=== PATIENT | female | born 1965 | race Caucasian/White ===

== ENCOUNTER 2019-12-29 10:03 | Outpatient (CLI) | payer OTHER, SELFPAY ==
--- NOTE | ~2019-12-29 | MM_ITS ---
EXAMINATION: MM screening mikaela BI w hemal HISTORY: Screening TECHNIQUE: Craniocaudal and mediolateral oblique 3-D tomosynthesis images were obtained and synthetic 2-D images were generated. CAD analysis was submitted and interpreted. COMPARISON: Comparison to multiple prior studies sequentially, with oldest reviewed study dated 02/2010. BREAST PARENCHYMAL COMPOSITION: The breasts are heterogeneously dense, which may obscure small masses . FINDINGS: There is no evidence of suspicious mass, calcification, or architectural distortion to sugg est malignancy in either breast. There has been no suspicious interval change. IMPRESSION: 1. No mammographic evidence of malignancy. 2. Recommend routine screening mammography in one year. BI-RADS Category 1: Negative Reviewed, dictated and finalized at location A.
== END 2019-12-29 10:04 | disposition home or self-care (01) ==
PROVIDERS: PCP Internal Medicine; Visit Provider Internal Medicine
DX: Z12.31 Encounter for screening mammogram for malignant neoplasm of breast (principal)
CPT/HCPCS: 77063; 77067

== ENCOUNTER 2021-05-06 08:32 | Emergency (ER) | payer OTHER, SELFPAY ==
[2021-05-06 08:51] VITALS: BP 122/77; PULSE 81; RESP 18; TEMP 36.8; O2SAT 98
--- NOTE | 2021-05-06 08:57 | ED.FEMALEGU ---
HPI - Female Genitourinary General Chief complaint: Urogenital-Female Stated complaint: UTI Time Seen by Provider: 05/06/21 09:13 Source: patient and RN notes reviewed Mode of arrival: ambulatory Limitations: no limitations History of Present Illness HPI Narrative: 55-year-old female presents with concern for urinary tract infection. She reports 1 month history of symptoms. She reports dysuria, frequency, urgency, low back pain, suprapubic pressure, hematuria. She reports starting to have nausea today. She also reports 1 month history of body aches, headache, sore throat. Reports she called off work and was required to have a Covid test to return to work. MD elicited complaint: UTI Related Data Home Medications Medication Instructions Recorded Confirmed acyclovir 200 mg PO QID 05/06/21 05/06/21 alprazolam 0.5 mg PO QID PRN 05/06/21 05/06/21 atorvastatin 40 mg PO DAILY 05/06/21 05/06/21 azelastine 0.05 drp EACH EYE BID 05/06/21 05/06/21 citalopram 40 mg PO DAILY 05/06/21 05/06/21 clopidogrel 75 mg PO DAILY 05/06/21 05/06/21 conj estrog-medroxyprogest desiree 0.3 tablet PO DAILY 05/06/21 05/06/21 [Prempro] gabapentin 300 mg PO HS 05/06/21 05/06/21 hydroxychloroquine 200 mg PO BID 05/06/21 05/06/21 oxycodone-acetaminophen 5 tablet PO Q6H PRN 05/06/21 05/06/21 Allergies Allergy/AdvReac Type Severity Reaction Status Date / Time Sulfa (Sulfonamide Allergy Unknown Hives Verified 08/30/18 07:45 Antibiotics) Review of Systems Review of Systems: CONSTITUTIONAL: Reports malaise, chills. Denies sweats, or fever. EYES: Denies visual changes, redness, or discharge. ENT: Denies rhinorrhea, congestion, sinus pain, otalgia. Reports sore throat. CARDIOVASCULAR: Denies chest pain, palpitations, or edema. RESPIRATORY: Denies cough or dyspnea. GASTROINTESTINAL: Denies abdominal pain, vomiting, diarrhea. Reports nausea and suprapubic pain GENITOURINARY: Reports dysuria, frequency, flank pain, hematuria. SKIN: Denies rash or itching. MUSCULOSKELETAL: Reports bilateral low back pain,myalgia. NEUROLOGIC: Reports headache. All systems reviewed & are unremarkable except as noted in HPI and below PMFSH Social History Social History Smoking status: Current every day smoker Alcohol intake: current Comments At time of signature, agree with nursing past medical, surgical, social and family history. There is no relevant family history pertinent to the presenting complaint Exam Narrative: GENERAL: Well-appearing, well-nourished, and in no acute distress. HEAD: Normocephalic. EYES: PERRLA, conjunctivae clear. NECK: Supple. No lymphadenopathy CHEST: Clear to auscultation. No respiratory distress. HEART: Regular rate and rhythm. ABDOMEN: Soft, suprapubic tenderness, nondistended, normal active bowel sounds, no palpable or pulsatile masses, no guarding. Bilateral CVA tenderness SKIN: Warm, dry, no rash. NEURO: Alert and oriented x3. PSYCH: Normal mood and affect Course Course Emergency Course: Patient is aware of diagnosis, understands and agrees to treatment plan. Anticipatory guidance given. Patient agrees to follow-up as directed and is aware of reasons to seek care at the emergency department. Portions of this record may have been created with voice recognition software Vital Signs Vital signs: Vital Signs Temperature 98.3 F 05/06/21 08:51 Pulse Rate 81 05/06/21 08:51 Respiratory Rate 18 05/06/21 08:51 Blood Pressure 122/77 05/06/21 08:51 Pulse Oximetry 98 05/06/21 08:51 Temperature 98.3 F 05/06/21 08:51 Pulse Rate 81 05/06/21 08:51 Respiratory Rate 18 05/06/21 08:51 Blood Pressure 122/77 05/06/21 08:51 Pulse Oximetry 98 05/06/21 08:51 Reviewed. MDM - Female Genitourinary MDM Narrative Medical decision making narrative: Exam findings and UA show no acute concerns or changes; patient is non-toxic appearing and is in no distress. Patient is appropriate for outpatient treatmen
== END 2021-05-06 09:47 | disposition home or self-care (01) ==
PROVIDERS: Emergency Provider Nurse Practitioner; PCP Internal Medicine
DX: N39.0 Urinary tract infection, site not specified (principal); Z20.822 Contact with and (suspected) exposure to COVID-19
CPT/HCPCS: 81003; 87086; 87088; 87426; 99213; C9803; G0463

== ENCOUNTER 2023-10-08 11:08 | Emergency (ER) | payer OTHER, SELFPAY ==
--- NOTE | ~2023-10-08 | XR_ITS ---
XR knee RT min 4V 10/08/2023 12:03 Indication: Right knee pain Procedure: 4 views right knee Comparison: No prior studies for comparison. Findings: No fracture, subluxation or dislocation. No significant soft tissue abnormality. No foreign bodies. There are surgical clips involving the soft tissues medial to the distal femur. Impression: 1: No acute bone or joint abnormality. Reviewed, dictated and finalized at location B. Impression: 1: No acute bone or joint abnormality.
[2023-10-08 11:27] VITALS: BP 136/67; PULSE 66; RESP 14; TEMP 36.6; O2SAT 99
--- NOTE | 2023-10-08 11:27 | ED.GENADULT ---
HPI - General Adult General Chief complaint: Extremity Injury, Lower Stated complaint: Fall Injury/Right Knee Time Seen by Provider: 10/08/23 11:28 Source: patient, RN notes reviewed and old records reviewed Mode of arrival: ambulatory Limitations: no limitations History of Present Illness HPI narrative: 58-year-old [facility] complaint of right knee pain status post fall 5 days ago. Patient reports tripping over a blanket and hitting her medial right knee on her bed frame. Patient denies numbness, tingling, weakness, pertinent history. Patient has attempted to treat at home with rest and ice without much improvement. patient in no acute distress. Related Data Home Medications Medication Instructions Recorded Confirmed acyclovir 200 mg capsule 200 mg PO QID 05/06/21 10/08/23 alprazolam 0.5 mg tablet 0.5 mg PO QID PRN Anxiety 05/06/21 10/08/23 atorvastatin 40 mg tablet 40 mg PO DAILY 05/06/21 10/08/23 citalopram 40 mg tablet 40 mg PO DAILY 05/06/21 10/08/23 clopidogrel 75 mg tablet 75 mg PO DAILY 05/06/21 10/08/23 gabapentin 100 mg capsule 300 mg PO HS 05/06/21 10/08/23 hydroxychloroquine 200 mg tablet 200 mg PO BID 05/06/21 10/08/23 oxycodone-acetaminophen 5 mg-325 5 tablet PO Q6H PRN Pain (Scale 05/06/21 10/08/23 mg tablet Score 4-6) ergocalciferol (vitamin D2) 1,250 1,250 mcg PO WEEKLY 10/08/23 10/08/23 mcg (50,000 unit) capsule umeclidinium 62.5 mcg-vilanterol 2 inh inhalation DAILY 10/08/23 10/08/23 25 mcg/actuation powdr for inhalation (Anoro Ellipta) Allergies Allergy/AdvReac Type Severity Reaction Status Date / Time Sulfa (Sulfonamide Allergy Unknown Hives Verified 10/08/23 12:00 Antibiotics) Review of Systems Review of Systems: All systems reviewed & are unremarkable except as noted in HPI and below Constitutional: Constitutional: Reports no additional constitutional complaints Eyes: Eyes: Reports no additional eye complaints ENT: Reports system reviewed and no additional complaints, except as documented Cardiovascular: Cardiovascular: Reports no additional cardiovascular complaints, Denies chest pain and Denies dyspnea Respiratory: Respiratory: Reports no additional respiratory complaints, Denies cough and Denies dyspnea Musculoskeletal: Musculoskeletal: Reports as per HPI, Reports arthralgias ( Right knee) and Reports joint swelling ( right knee) Neurologic: Reports as per HPI, Denies Sensory deficit (Neuro), Denies tingling and Denies weakness Psychiatric: Psychiatric: Reports no additional psychiatric complaints PMFSH Social History Social History Smoking status: Current every day smoker Alcohol intake: current Comments At the time of my signature, I reviewed and agree with the nursing past medical, surgical, social, and family history. There is no relevant family history pertinent to the patient complaint. Exam Const: General: cooperative, healthy appearing, comfortable, no acute distress, alert and well nourished Nutritional Appearance: well nourished Orientation/consciousness: patient oriented x3 Limitations: no limitations HENMT: Head: normal to inspection Ears: external ears normal Face/Nose/Sinus: Normal external nose present, Normal nares present, normal facial exam, No erythema and No edema Face and sinus: normal facial exam, no erythema and no edema Mouth: Yes Normal oral and palatal mucosa present Eyes: General: appearance normal, both eyes and all related structures Neck: Neck: normal visual inspection, full ROM and no meningeal signs Lymphatic: no lymphadenopathy noted and no lymphedema noted Chest: Chest palpation & inspection: normal inspection of the chest Resp: Effort & Inspection: normal respiratory effort and able to speak in complete sentences Auscultation: clear to auscultation bilaterally Cardio: Jugular venous distension: no JVD Rate: regular rate Rhythm: regular
[2023-10-08 12:07] VITALS: BP 136/67; PULSE 66; RESP 14; TEMP 36.6; O2SAT 99
== END 2023-10-08 12:20 | disposition home or self-care (01) ==
PROVIDERS: Emergency Provider Nurse Practitioner Family; PCP Internal Medicine
DX: S80.01XA Contusion of right knee, initial encounter (principal); W18.09XA Striking against other object with subsequent fall, initial encounter; F17.200 Nicotine dependence, unspecified, uncomplicated; E78.00 Pure hypercholesterolemia, unspecified; I10 Essential (primary) hypertension; M19.90 Unspecified osteoarthritis, unspecified site; M32.9 Systemic lupus erythematosus, unspecified; F41.9 Anxiety disorder, unspecified; F32.A Depression, unspecified; Z95.1 Presence of aortocoronary bypass graft
CPT/HCPCS: 73564; 99213; G0463

== ENCOUNTER 2024-11-09 11:25 | Emergency (ER) | payer OTHER, SELFPAY ==
--- OUTSIDE RECORDS SUMMARY | 2024-11-09 11:31 | XMS_ITS | Referral Summary ---
Author Organization [facility] Address [address] [place] [address] Care Team Providers Care Bowling Floor Desk Clerk Name Role Phone Jevon Wilson MD Primary Care Provider + Ace Young MD Unavailable [phone] Allergies Active Allergy Reactions Criticality Noted Date Comments Adhesive Other (See comments) Medium 02/06/2023 Surgical glue - states her arm turned black Sulfa (Sulfonamide Antibiotics) Hives,Itching High 10/15/2016 Medications albuterol HFA (PROAIR HFA) 90 mcg/actuation inhaler inhale 2 puff by inhalation route every 4 - 6 hours as needed 1 Inhaler 11 11/08/19 17 Active Additional Information Patient taking differently: 2 puff inhalation As needed, shortness of breath, wheezing, Indications: Chronic Obstructive Pulmonary Disease, Informant: Self, Reported on 02/06/2023 citalopram (CeleXA) 40 mg tablet Take 1 tablet (40 mg total) by mouth daily. 90 tablet 3 12/13/19 17 Active Additional Information Patient taking differently:40 mg oralEvery morning, Indications: Anxiety with Depression, Informant: Self, Reported on 02/06/2023 gabapentin (NEURONTIN) 100 mg capsuleIndication s:Neuropathic Pain,lupus Take 3 capsules (300 mg total) by mouth nightly Active clopidogrel (PLAVIX) 75 mg tabletIndications :myocardial infarction prevention Take 1 tablet (75 mg total) by mouth every morning Active oxyCODONE-acetami nophen (PERCOCET) 5-325 mg per tabletIndications :Pain Take 1 tablet by mouth every 8 (eight) hours as needed for pain Active ondansetron ODT (ZOFRAN-ODT) 4 mg disintegrating tablet Dissolve 1 tablet oral every 4 hours as needed for nausea or vomiting. 15 tablet 02/23/20 18 Active Additional Information Patient taking differently: 4 mg oral Every 8 hours PRN, nausea, vomiting, Dissolve 1 tablet oral every 4 hours as needed for nausea or vomiting., Informant: Self, Reported on 02/06/2023 ALPRAZolam (XANAX) 0.5 mg tabletIndications :anxiety,sleep Take 1 tablet (0.5 mg total) by mouth nightly 3 06/21/19 19 Active umeclidinium-peggy nterol (ANORO ELLIPTA) 62.5-25 mcg/actuation blister with deviceIndications :Bronchospasm Prevention with COPD Inhale 1 puff every morning Active acyclovir (ZOVIRAX) 200 mg capsuleIndication s:Chronic Suppression,herpe s Take 3 capsules (600 mg total) by mouth 2 (two) times a day 05/07/20 21 Active nitroglycerin (NITROSTAT) 0.[address] 1 tablet (0.4 mg total) under the tongue every 5 (five) minutes as needed for chest pain 08/23/19 21 Active hydrOXYchloroQUIN E (PLAQUENIL) 200 mg tabletIndications :Rheumatoid Arthritis,lupus Take 1 tablet (200 mg total) by mouth 2 (two) times a day 04/09/20 21 Active aspirin/acetamino phen/caffeine (EXCEDRIN MIGRAINE ORAL)Indications: for migraines Take 2 tablets by mouth as needed (headaches) Active oxybutynin (DITROPAN) 5 mg tabletIndications :Bladder Hyperactivity,Uri nary Urgency Take 1 tablet (5 mg total) by mouth 3 (three) times a day as needed (bladder spasms) 10 tablet 05/29/20 21 Active Additional Information Patient taking differently:5 mg oral 3 times daily PRN, bladder spasms,Not taking, Indications: Bladder Hyperactivity, Urinary Urgency, Informant: Self, Reported on 03/08/2024 cholecalciferol (VITAMIN D-3) 25 mcg (1,000 unit) tabletIndications :for supplement Take 5 tablets (5,000 Units total) by mouth every morning Not taking Active sucralfate (CARAFATE) 1 gram tablet Take 1 tablet (1 g total) by mouth 4 (four) times a day 120 tablet 02/06/20 23 Active Additional Information Patient taking differently:1 g oral 4 times daily,Indications: gastroesophageal reflux disease, Informant: Self, Reported on 02/06/2023 atorvastatin (LIPITOR) 40 mg tabletIndications :hyperlipidemia Take 1 tablet (40 mg total) by mouth every morning 02/16/[address] (PROTONIX) 40 mg EC tablet Take 1 tablet (40 mg total) by mouth every morning 02/07/20 24 Active phenazopyridine (PYRIDIUM) 100 mg tablet Take 1 tablet (100 mg total) by mouth 3 (three) times a day as needed for urinary pain 40 tablet 2 03/30/20 24 Active Active Problems Problem Noted Date Diagnosed Date Chronic gastric ulcer 03/26/2023 IC (interstitial cystitis) 07/10/2021 Overview (07/10/2021): Added automatically from request for surgery [id number] 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 She describes losing weight after cardiac surgeon. She is a chronic cigarette smoker and has severe COPD. My suspicion is that have cachexia be more related to the COPD. She also has rheumatoid arthritis, peripheral vascular disease and lupus. Will request for CBC, CMP and CT abdomen and pelvis. Healthcare maintenance 01/28/2017 Medication management 01/28/2017 Generalized abdominal pain 01/28/2017 Migraine without aura and wi thout status migrainosus, not intractable 01/28/2017 Gastroesophageal reflux disease without esophagi tis 01/08/2017 Assessment & Plan (01/08/2017 3:34 PM CDT): Patient was encouraged to take her medications with food. Patient will trial Zantac 75 twice daily as needed [id number]. Will cut back on the peppers and tomatoes from the garden. He will follow up here with absolutely any change in, worsening, or non improvement in condition. Pain of upper abdomen 01/05/2017 Assessment & Plan (07/02/2018 10:56 AM TELEVISION PRODUCER): Chronic. Associated with weight loss. May be due to gastroesophageal reflux disease but less likely peptic ulcer disease. Chronic pancreatitis is a consideration. Plan Will obtain a CT scan of the abdomen and pelvis. Esophagogastroduodenoscopy is recommended and scheduled. CBC, CMP and amylase levels are requested. Assessment & Plan (01/05/2017 3:55 PM CDT): With recent weight loss, associated nausea and vomiting, and white bowel movements. I am concerned with underlying gallbladder vs. liver disease. She also appears to have a urinary tract infection as well. We will be empirically treating her presumed urinary tract infection. Urine will be sent for urinalysis with culture and sensitivity. She will proceed to the lab today for a CBC, CMP, amylase, and lipase. We will also get her scheduled for right upper quadrant abdominal ultrasound. She will closely follow up here on or Thursday of this week. Patient declined emergency room consultation. She notes her pain is severe but she wished to proceed on an outpatient basis. Patient was encouraged to proceed to the emergency room with any change in, worsening, or non improvement in her condition. Both she and her verbalized understanding and were in agreement with the plan of care. We discussed the severity of the possibility of underlying acute gallbladder attack. And that this could cause rupture subsequent infection and life-threatening illness. Both verbalized understanding and were in agreement with the plan of care. Systemic lupus erythematosus 10/08/2016 Overview (10/31/2016): SLE Carotid artery disease 06/10/2016 Overview (09/11/2016): Carotid artery disease Hepatitis C virus infection 06/10/2016 Overview (09/11/2016): Hep C Assessment & Plan (07/02/2018 10:57 AM TELEVISION PRODUCER): Patient has been treated in the past with interferon and ribavirin. Blood tests reveal undetectable virus in 2017. Imaging studies did not reveal any evidence of cirrhosis. No further intervention is required. Tobacco dependence syndrome 06/10/2016 Overview (09/11/2016): Tobacco use disorder Chronic coronary artery disease 06/10/2016 Overview (09/11/2016): CAD Peripheral arterial occlusive disease 06/10/2016 Overview (09/11/2016): PAD Endometriosis 09/14/2014 Overview (09/11/2016): Endometriosis Rheumatoid arthritis involvi ng multiple sites with positive rheumatoid factor 09/14/2014 Overview (09/11/2016): RA - Rheumatoid arthritis Chronic obstructive pulmonary disease 09/14/2014 Overview (09/11/2016): COPD - Chronic obstructive pulmonary disease Resolved Problems Problem Noted Date Diagnosed Date Resolved Date Dysuria 01/05/2017 01/28/2017 Assessment & Plan (01/05/2017 3:52 PM CDT): Urine dip reviewed. I recommended empiric treatment with Macrobid 1 by mouth twice daily for the next 7 days. Urine will be submitted for urinalysis with culture and sensitivity. Further direction pending these results. She will be following up here closely within 3-4 days. Immunizations Immunization Administration Dates Next Due Influenza, Quadrivalent, Split, Intramuscular Influenza, Quadrivalent, Spl it, Preservative Free, Intradermal 06/10/2016 Influenza, Trivalent, IM (MDV) 03/16/2017 Moderna SARS-CoV-2 Monovalent Vaccination (12+ Y RS) 09/26/2020 Pneumococcal Polysaccharide PPV23 02/08/2015 Social History Tobacco Use Types Packs/Day Years Used Date Smoking Tobacco: Every Day Cigarettes 0.4 20.4 Started: 2004 Smokeless Tobacco: Never Tobacco Cessation:Ready to Q uit: Not Asked; Counseling Given: Not Answered Comments:currently trying to quit; counselled pt to contact PCP for assist; inst not to smoke after midnight tonight; Alcohol Use Standard Drinks/Week Comments No 0 (1 standard drink = 0.6 oz pur e alcohol) AUDIT-C Answer Date Recorded Q1: How often do you have a drink containing alcohol? Never 03/30/2024 Q2: How many drinks containi ng alcohol do you have on a typical day when you are drinking? Patient does not drink Q3: How often do you have si x or more drinks on one occasion? Never 03/30/2024 PHQ-2 Answer Date Recorded PHQ-2 Total Score (If total score is 3 or more points, staff should administer the PHQ-9) 0 06/27/2021 Personal Safety Answer Date Recorded Have you ever been in or are you currently in a harmful physical or emotional relationship or is someone making you feel afraid or unsafe? Denies 03/30/2024 Comments No Sex and Gender Information Value Date Recorded Sex Assigned at Not on file Legal Sex Female 3:35 AM TELEVISION PRODUCER Gender Identity Female 05/23/2021 8:56 AM TELEVISION PRODUCER Sexual Orientation Not on file Last Filed Vital Signs Vital Sign Reading Time Taken Comments Blood Pressure 121/83 03/30/2024 1:45 PM CDT Pulse 51 03/30/2024 1:45 PM CDT Temperature 36.3 C (97.3 F) 03/30/2024 1:45 PM CDT Respiratory Rate 21 03/30/2024 1:45 PM CDT Oxygen Saturation 96% 03/30/2024 1:45 PM CDT Inhaled Oxygen Concentration - - Weight 48.6 kg (107 lb 3.2 oz) 03/30/2024 11:07 AM CDT Height 162.6 cm (5' 4) 03/30/2024 11:07 AM CDT Body Mass Index 18.4 03/30/2024 11:07 AM CDT Plan of Treatment Not on file Medical Devices Implanted Type Area Email Operations Manager Device Identifier Shelf Expiration Date Model / Serial / Lot Express Ld Stent Iliac Procedures Procedure Name Priority Date/Time Associated Diagnosis Comments CT CHEST WO CONTRAST F/U LUNG SCREEN PROTOCOL Schedule Routine, Read Routine (OP Routine) 07/18/2024 6:54 AM TELEVISION PRODUCER Other nonspecific abnormal finding of lung field DIAGNOSTIC MAMMOGRAM BILATERAL W ALIN Schedule Routine, Read Routine (OP Routine) 08/31/2023 8:09 AM CDT Other abnormal and inconclusive findings on diagnostic imaging of breast COLONOSCOPY 02/26/2022 12:51 PM CDT HEPATITIS C RNA, QUANTITATIVE, PCR Routine 02/13/2022 9:26 AM CDT Chronic hepatitis C without hepatic coma (HCC) IMAGING PAP AND HPV MRNA E6/E7 Routine 11/05/2018 9:11 AM CDT Well woman exam from Last 3 Months or Most Recently Relevant to Health Maintenance Results * CT Chest WO Contrast F/U Lung Screen Protocol (07/18/2024 6:54 AM TELEVISION PRODUCER) Anatomical Region Laterality Modality Chest N/A Computed Tomogra phy 07/18/2024 8:59 AM TELEVISION PRODUCER Narrative 07/18/2024 9:19 AM TELEVISION PRODUCER EXAM DESCRIPTION: CT CHEST WO CONTRAST F/U LUNG SCREEN PROTOCOL REASON FOR STUDY: Screening CT of the chest in a current smoker with a 20 pack year smoking history. Additional history: None. TECHNIQUE: Low dose CT scan of the chest was performed without intravenous contrast using helical scanning technique. The exam extends from the lung apices through the lung bases. Automatic exposure control was used as a dose optimization technique. NOTE: This study was performed for the specific purposes of lung cancer screening and is not an alternative to diagnostic chest CT. The sensitivity for detection of solid visceral lesions is diminished without the use of intravenous contrast. RADIATION DOSE: CT dose index volume (CTDIvol) = 0.95 mGy COMPARISON: CT chest 04/08/2024 FINDINGS: SMOKING RELATED LUNG DISEASE: Moderate pulmonary emphysema. Scarring in the lung apices. LUNG NODULES: Semisolid 1.7 x 0.7 cm nodule in the right apex (image 39) is unchanged. Noncalcified 4 mm nodule in the medial left upper lobe (image 154) is unchanged. Noncalcified 3 mm nodule in the juxtapleural right middle lobe (image 189) is unchanged. Noncalcified 2 mm nodule in the anterior left lower lobe (image 76) is unchanged. Minimal nodularity in the lateral segment right middle lobe has slightly decreased in is favored to be postinfectious in etiology. PLEURAE: No pneumothorax or pleural effusion. MEDIASTINUM/AGAPITO: No mediastinal or hilar lymphadenopathy within the limitations of a noncontrast exam. HEART: Heart size is normal with no pericardial effusion. CORONARY ARTERY CALCIFICATION: Severe VASCULATURE: No thoracic aortic aneurysm. AXILLAE: No lymphadenopathy. CHEST WALL: No masses. No subcutaneous air. HARDWARE/LINES/TUBES: Prior sternotomy. UPPER ABDOMEN: Mild thoracic spondylosis. MUSCULOSKELETAL: No significant abnormality. IMPRESSION: Stable semisolid 1.7 x 0.7 cm nodule in the right apex is unchanged from 08/31/2023. The tree-in-bud nodularity in the right middle lobe has slightly decreased and is favored to be postinfectious. Other noncalcified pulmonary nodules are unchanged. Moderate pulmonary emphysema. Lung-RADS category 2: Benign appearance or behavior. Recommendation: Low dose Screening CT of chest in 12 months. THIS IS AN ELECTRONICALLY VERIFIED FINAL REPORT 07/18/2024 9:19 AM - Electronically signed by Dez Peguero M.D. LB: LB Report ID: [id number] Reading Location: [place] [address] Procedure Note Dze Peguero MD - 07/18/2024 EXAM DESCRIPTION: CT CHEST WO CONTRAST F/U LUNG SCREEN PROTOCOL REASON FOR STUDY: Screening CT of the chest in a current smoker with a20 pack year smoking history. Additional history: None. TECHNIQUE: Low dose CT scan of the chest was performed without intravenous contrast using helical scanning technique. The exam extends from the lung apices through the lung bases. Automatic exposure control was used as adose optimization technique. NOTE: This study was performed for the specific purposes of lung cancer screening and is not an alternative to diagnostic chest CT. Thesensitivity for detection of solid visceral lesions is diminished without the use of intravenous contrast. RADIATION DOSE: CT dose index volume (CTDIvol) = 0.95 mGy COMPARISON: CT chest 04/08/2024 FINDINGS: SMOKING RELATED LUNG DISEASE: Moderate pulmonary emphysema. Scarring inthe lung apices. LUNG NODULES: Semisolid 1.7 x 0.7 cm nodule in the right apex (image 39)is unchanged. Noncalcified 4 mm nodule in the medial left upper lobe ([id number]) is unchanged. Noncalcified 3 mm nodule in the juxtapleural right middlelobe (image 189) is unchanged. Noncalcified 2 mm nodule in the anterior leftlower lobe (image 76) is unchanged. Minimal nodularity in the lateral segmentright middle lobe has slightly decreased in is favored to be postinfectious in etiology. PLEURAE: No pneumothorax or pleural effusion. MEDIASTINUM/AGAPITO: No mediastinal or hilar lymphadenopathy within the limitations of a noncontrast exam. HEART: Heart size is normal with no pericardial effusion. CORONARY ARTERY CALCIFICATION: Severe VASCULATURE: No thoracic aortic aneurysm. AXILLAE: No lymphadenopathy. CHEST WALL: No masses. No subcutaneous air. HARDWARE/LINES/TUBES: Prior sternotomy. UPPER ABDOMEN: Mild thoracic spondylosis. MUSCULOSKELETAL: No significant abnormality. IMPRESSION: Stable semisolid 1.7 x 0.7 cm nodule in the right apex is unchanged from 08/31/2023. The tree-in-bud nodularity in the right middle lobe has slightlydecreased and is favored to be postinfectious. Other noncalcified pulmonary nodules are unchanged. Moderate pulmonary emphysema. Lung-RADS category 2: Benign appearance or behavior. Recommendation: Low dose Screening CT of chest in 12 months. THIS IS AN ELECTRONICALLY VERIFIED FINAL REPORT 07/18/2024 9:19 AM - Electronically signed by Dez Peguero M.D. LB: NASEEM Report ID: [id number] Reading Location: [place] [address] Cale Meehan MD IMG CT PROCEDURES Regina l Result * Diagnostic Mammogram Bilateral W Alin (08/31/2023 8:09 AM CDT) Anatomical Region Laterality Modality Breast Bilateral Mammography 08/31/2023 8:20 AM CDT Impressions 08/31/2023 8:20 AM CDT 1. The 3 mm group of probably benign microcalcifications at the 12 o'clock position of the right breast 5 cm from the nipple is unchanged, and no new suspicious findings are identified in either breast. Continued monthly breast self-examination is recommended, and follow-up with bilateral diagnostic mammogram in 12 months to document two-year stability. BI-RADS: 3 - Probably benign. The patient was notified of the results and recommendations on the time of the examination. Electronically signed by: VERONICA MURPHY Prisca 08/31/2023 8:20 AM CDT EXAMINATION: DIAGNOSTIC MAMMOGRAM BILATERAL W ALIN ORDERING HEALTHCARE PROVIDER: MONALISA BARNES HISTORY: 28-year-old woman comes in today for follow-up of probably benign microcalcifications in the right breast, an screening of the left breast. COMPARISON: 08/27/2022, 12/29/2019. TECHNIQUE: CC and MLO views of both breasts were obtained with digital technique using digital breast tomosynthesis with C view. Additional full field 2-D digital mammograms of the right breast performed in the spot magnification CC and spot magnification LM projections. FINDINGS: The breast tissue is heterogeneously dense, which may obscure small masses. A 3 mm group of round and punctate microcalcifications is redemonstrated at approximately the 12 o'clock position of the right breast 5 cm from the nipple. There is no associated mass or architectural distortion. Overall appearance of this finding is stable compared to August 2022. These findings were equivocally present on older mammograms. Other benign microcalcifications in both breasts are unchanged. There is no new suspicious finding in either breast on mammogram. us Monalisa Barnes RIDE MECHANIC IMG MAMMO PROCEDURES Final Result * COLONOSCOPY (02/26/2022 12:51 PM CDT) Anatomical Region Laterality Modality Other Narrative Procedure Note Zack Avilez MD - 02/26/2022 12:51 PM CDT [facility] Patient Name: Estela Barney Procedure Date: 02/26/2022 12:51 PM Date of : 1965 Admit Type: Outpatient Age: 56 Gender: Female Note Status: Finalized Attending MD: Zack Avilez M.D. Procedure Date: 02/26/2022 Procedure: Colonoscopy Indications: Weight loss Providers: Zack Avilez M.D., Sara Gill CRNA (Anesthesia Staff), Diana Madera RN Referring MD: Jevon Wilson M.D. Medicines: Monitored Anesthesia Care Complications: No immediate complications. Estimated Blood Loss: Estimated blood loss: none. Procedure: Pre-Anesthesia Assessment: - Airway Examination: normal oropharyngeal airwayand neck mobility. - Respiratory Examination: clear to auscultation. - ASA Grade Assessment: III - A patient with severe systemic disease. - After reviewing the risks and benefits, thepatient was deemed in satisfactory condition to undergo the procedure. - The risks and benefits of the procedure and the sedation options and risks were discussed with the patient. All questions were answered and informed consent was obtained. After I obtained informed consent, the scope was passed under direct vision. Throughout theprocedure, the patient's blood pressure, pulse, and oxygen saturations were monitored continuously. The scopewas passed under direct vision. The Colonoscope was introduced through the anus and advanced to the the cecum, identified by the appendiceal orifice, ileocecal valve and palpation. The colonoscopy was performed with ease. The patient tolerated the procedure well. The quality of the bowelpreparation was good. The quality of the bowel preparation was evaluated using the BBPS (Ranson Bowel Preparation Scale) with scores of: Right Colon = 2 (minoramount of residual staining, small fragments of stooland/or opaque liquid, but mucosa seen well), TransverseColon = 2 (minor amount of residual staining, small fragments of stool and/or opaque liquid, but mucosa seen well) and Left Colon = 2 (minor amount of residual staining, small fragments of stool and/or opaque liquid, but mucosa seen well). The totalBBPS score equals 6. The quality of the bowelpreparation was good. The bowel preparation used was Miralaxvia split dose instruction. Bowel prep was administered using a split dose. Findings: The perianal and digital rectal examinations were normal. A 5 mm polyp was found in the sigmoid colon. The polyp was sessile.The polyp was removed with a cold biopsy forceps. Resection and retrieval were complete. Estimated blood loss: none. The retroflexed view of the distal rectum and anal verge was normaland showed no anal or rectal abnormalities. Impression: - One 5 mm polyp in the sigmoid colon, removed witha cold biopsy forceps. Resected and retrieved. - The distal rectum and anal verge are normal on retroflexion view. Recommendation: - Discharge patient to home (ambulatory). - Await pathology results. - Repeat colonoscopy in 5 years for surveillance. Procedure Code(s): --- Professional --- 65374, Colonoscopy, flexible; with biopsy, singleor multiple Diagnosis Code(s): --- Professional --- D12.5, Benign neoplasm of sigmoid colon R63.4, Abnormal weight loss CPT copyright 2020 [employer]. All rights reserved. The codes documented in this report are preliminary and upon hcc coders reviewmay be revised to meet current compliance requirements. Electronically signed by Zack Avilez MD Zack Avilez M.D. 02/26/2022 1:42:48 PM Number of Addenda: 0 Note Initiated On: 02/26/2022 12:51 PM us Zack Avilez MD ENDOSCOPY PROCEDURES Final Resul t * Hepatitis C (HCV) RNA PCR, quantitative (02/13/2022 9:26 AM CDT) HCV RNA result Not Detected [facility] Comment: The quantifiable range of this assay is 15 IU/mL to 100,000,000 IU/mL (1.18 log IU/mL to 8.00 log IU/mL). Testing was performed by the [facility] 6800 HCV Test ([employer] Testing performed at [facility] Current Interpretive Data was last revised on 2021 Testing performed by: [facility], [address] [facility], [place]., [address] Blood 02/13/2022 9:26 AM CDT 02/14/2022 3:03 AM CDT us Zack Avilez MD LAB MICROBIOLOGY - GENERAL ORDER SAMEER Final Result [facility] [id number] [place] [address] * Imaging Pap and HPV mRNA E6/E7 (11/05/2018 9:11 AM CDT) Report status CANCELED [facility] Comment:Result canceled by t he ancillary. CLINICAL INFORMATION: [facility] Comment:Information not prov ided LMP [facility] Comment:INFORMATION NOT PROV IDED Previous Pap [facility] Comment:INFORMATION NOT PROV IDED Prev. Bx [facility] Comment:INFORMATION NOT PROV IDED SOURCE: [facility] Comment:Information not prov ided Pap, specimen adequacy [facility] Comment: Satisfactory for evaluation. Endocervical/transformation zone component absent. Age and/or menstrual status not provided Pap, general categorization CANCELED [facility] Comment:Result canceled by t he ancillary. HPV interp [facility] Comment:Negative for intraep ithelial lesion or malignancy. Infection: CANCELED [facility] Comment:Result canceled by t he ancillary. COMMENTS [facility] Comment: This Pap test has been evaluated with computer assisted technology. Slicing Machine Tender [facility] - Comment: WANDER CT(ASCP) CT [facility] [facility] [address] [place] [address] Review manager core [facility] [place] Comment:Result canceled by t he ancillary. Pathologist [facility] [place] Comment:Result canceled by t he ancillary. Comment [facility] - Comment: EXPLANATORY NOTE: The Pap is a screening test for cervical cancer. It is not a diagnostic test and is subject to false negative and false positive results. It is most reliable when a satisfactory sample, regularly obtained, is submitted with relevant clinical findings and history, and when the Pap result is evaluated along with historic and current clinical information. Human papillomavirus RNA, High Risk E6/E7 Not Detected Not Detected [facility] [place] Comment: This test was performed using the APTIMA HPV Assay ([employer] This assay detects E6/E7 viral messenger RNA (mRNA) from 14 high-risk HPV types (16,18,31,33,35,39,45,51,52,56,58,59,66,68). The analytical performance characteristics of this assay have been determined by [facility]. The modifications have not been cleared or approved by the FDA. This assay has been validated pursuant to the CLIA regulations and is used for clinical purposes. Endocervical 11/05/2018 9:11 AM CDT 11/08/2018 8:28 AM CDT Narrative Resulting Agency Comment Performing Organization Information: Site ID: [id number] Name: [facility] Address: [address] [facility] [place], [place] [address] Director: Riley Soto D.O., MPH Site ID: [id number] [facility] Address: [address] [place] [address] Director: Marivel Gil Michelle Bradshaw NP LAB PATHOLOGY ORDERABLES Final Result [facility] [place], [place] [facility] [place] from Last 3 Months or Most Recently Relevant to Health Maintenance Insurance Communities for Cause OPEN ACCESS HEALTHLINK OPEN ACCESS HEALTHLINK OPEN ACCESS Advance Directives For more information, please contact: [phone] Documents on File Type Date Recorded Patient Physician Relations Specialist Expl anation ADVANCE DIRECTIVE 04/01/2019 12:27 PM * Full Code (Latest Code Status on File) Date Activated Date Inactivated Comments 10/21/2017 12:55 PM 10/23/2017 12:11 PM Care Teams Bowling Floor Desk Clerk Relationship Specialty Start Date End Date Jevon Wilson MD [address] [place] [address] PCP - General 04/23/17 Ace Young MD [address] [address] Consulting Physician Urology 05/29/21
--- OUTSIDE RECORDS SUMMARY | 2024-11-09 11:31 | XMS_ITS | Encounter Summary ---
Author Organization [facility] Address [address] [facility] [place] [address] Care Team Providers Care Booth Operator Name Role Phone Jevon Wilson MD Primary Care Provider + Edison Casper MD Primary Care Provider Jevon Wilson MD Primary Care Provider + Edison Casper MD Primary Care Provider Jevon Wilson MD Primary Care Provider + Jevon Wilson MD Primary Care Provider + Edison Casper MD Primary Care Provider Jevon Wilson MD Primary Care Provider + Edison Casper MD Primary Care Provider [phone] Jevon Wilson MD Primary Care Provider + Ace Young MD Unavailable [phone] Encounter Details Date Type Department Care Team (Late st Contact Info) Description 01/12/2016 Orders Only [place] Internal [facility] Provider, MD [facility] [place] [address] Social History Tobacco Use Types Packs/Day Years Used Date Smoking Tobacco: Some Days Comments:Smoking History Pac ks/day: 1 Packs Alcohol Use Standard Drinks/Week Comments No 0 (1 standard drink = 0.6 oz pur e alcohol) Comments Unknown Sex and Gender Information Value Date Recorded Sex Assigned at Not on file Legal Sex Female 3:35 AM ASSISTIVE TECHNOLOGY TRAINER Gender Identity Female 05/23/2021 8:56 AM ASSISTIVE TECHNOLOGY TRAINER Sexual Orientation Not on file documented as of this encounter Plan of Treatment Not on file documented as of this encounter Procedures Procedure Name Priority Date/Time Associated Diagnosis Comments CARDIOLOGY REPORT 01/12/2016 documented in this encounter Results * CARDIOLOGY REPORT (01/12/2016) Anatomical Region Laterality Modality Other Narrative 01/12/2016 Ordered by an unspecified provider. us Historical Provider [facility] GREGORIA MENDEZ Final Result documented in this encounter Visit Diagnoses Not on filedocumented in this encounter Care Teams Booth Operator Relationship Specialty [place] [address] [place] [address] [place] [address] PCP - General 09/05/16 09/09/16 Edison Casper MD [address] [place] [address] [place] [address] PCP - General 08/27/16 09/04/16 Jevon Wilson MD [address] [place] [address] [place] [address] PCP - General 06/10/16 08/26/16 Edison Casper MD [address] [place] [address] [place] [address] PCP - General 09/10/16 09/16/16 Jevon Wilson MD [address] [place] [address] [place] [address] PCP - General 05/15/15 06/09/16 Jevon Wilson MD [address] [address] PCP - General 09/17/16 09/30/16 Edison Casper MD [facility] [address] PCP - General 10/01/16 10/07/16 Jevon Wilson MD [facility] [address] PCP - General 10/08/16 04/20/17 Edison Casper MD [facility] [address] PCP - General 04/21/17 04/22/17 Jevon Wilson MD [facility] [address] PCP - General 04/23/17 Ace Young MD [address] [place] [address] [place] [address] Consulting Physician Urology 05/29/21 documented as of this encounter
--- OUTSIDE RECORDS SUMMARY | 2024-11-09 11:31 | XMS_ITS | Clinical Summary ---
Author Organization [facility] Address [address] [place] [address] Care Team Providers Care Control Cabinet Assembler Name Role Phone Jevon Wilson MD Primary Care Provider [phone] Allergies Active Allergy Reactions Criticality Noted Date Comments Sulfa (Sulfonamide Antibiotics) Hives High 06/09 Medications acyclovir (ZOVIRAX) 200 mg capsule Take 200 mg by mouth 2 times daily. 3 9 Active albuterol HFA 90 mcg inhaler Take 90 mcg by inhalation Continuous as needed. 7 Active ALPRAZolam (XANAX) 0.5 mg tablet Take 0.5 mg by mouth 4 times daily as needed. 3 9 Active aspirin (ECOTRIN EC) 81 mg Tablet, Delayed Release (E.C.) Take 81 mg by mouth daily. Active atorvastatin (LIPITOR) 80 mg tablet Take 80 mg by mouth daily. 7 Active citalopram (CeleXA) 40 mg tablet Take 40 mg by mouth daily. 7 Active clopidogrel (PLAVIX) 75 mg Tablet Take 75 mg by mouth daily. Active ergocalciferol (VITAMIN D2) 50,000 unit capsule Take 50,000 Units by mouth every 7 days. Active estradiol (ESTRACE) 1 mg tablet Take 1 mg by mouth daily. 3 9 Active gabapentin (NEURONTIN) 100 mg capsule Take 300 mg by mouth daily. Active medroxyPROGESTE Pako (PROVERA) 2.5 mg tablet Take 2.5 mg by mouth daily. 2 9 Active oxyCODONE-aceta minophen (PERCOCET) 5-325 mg tablet Take 1 Tablet by mouth 4 times daily as needed. 8 Active Active Problems No known active problems Family History Medical History Relation Name Comments Cancer Brother Diabetes Brother Heart Disease Brother Pancreatic Cancer Brother Diabetes Mother Heart Disease Mother Colon Cancer Sister 3 Relation Name Status Comments Brother Alive Father Mother Sister 1 Alive Sister 2 Alive Sister 3 Sister 4 Sister 5 Alive Sister 6 Alive Sister 7 Alive Social History Tobacco Use Types Packs/Day Years Used Date Smoking Tobacco: Every Day Cigarettes 1 32 Smokeless Tobacco: Never Comments:only smoking 2-3 ci gs a day Alcohol Use Standard Drinks/Week Comments Not Currently 0 (1 standard drink = 0.6 oz pur e alcohol) Comments No Sex and Gender Information Value Date Recorded Sex Assigned at Not on file Legal Sex Female 11:04 AM CDT Gender Identity Not on file Sexual Orientation Not on file Last Filed Vital Signs Vital Sign Reading Time Taken Comments Blood Pressure 124/78 10/21/2018 9:56 AM CDT Pulse 57 10/21/2018 9:56 AM CDT Temperature 36.7 C (98 F) 10/21/2018 9:56 AM CDT Respiratory Rate - - Oxygen Saturation 94% 10/21/2018 9:56 AM CDT Inhaled Oxygen Concentration - - Weight 49.1 kg (108 lb 4.8 oz) 10/21/2018 9:56 A M CDT Height 165.1 cm (5' 5) 10/21/2018 9:56 AM CDT Body Mass Index 18.02 10/21/2018 9:56 AM CDT Plan of Treatment Health Maintenance Due Date Last Done Comments DTAP/TDAP/TD VACCINES (1 - Tdap) 1983 HPV/Cotest (21-29) 1985 CERVICAL CANCER SCREENING 1994 HPV/Cotest (30-65) 1994 PAP SMEAR 1994 BREAST CANCER SCREENING 2004 COLORECTAL SCREENING 2009 Colorectal Cancer Screening 2009 FIT-DNA Q 3 years 2009 FIT/FOBT Q 1 year 2009 Flex Sig/CT Colonography Q 5 years 2009 ZOSTER VACCINE (1 of 2) 2014 INFLUENZA VACCINE (#1) 2024 7, 06/10/2016, 03/12/2015 HEPATITIS B VACCINES (1 of 3 - Risk 3-dose series) 2024 RSV VACCINE (60+ or ) (1 - Risk 60-74 years 1-dose series) 2024 Insurance [employer] PPO Care Teams Control Cabinet Assembler Relationship Specialty Start Date End Date Jevon Wilson MD [address] [place] [address] PCP - General Internal Medicine 10/21/18
--- OUTSIDE RECORDS SUMMARY | 2024-11-09 11:31 | XMS_ITS | Clinical Summary ---
Author Organization [facility] Address [address] [place] [address] Care Team Providers Care Transfer Agent Name Role Phone Unavailable Primary Care Provider Unavailabl e Source Comments [facility],non-owned Affiliates and Associated Physician Practices is amultiple site organization consisting of ambulatory clinics and hospital sitesin [place], [place], [place] and [place]. This disclosure is being madepursuant to the Care Everywhere program and may not contain all information available regarding this patient. Last updated 18.[facility] Social History Tobacco Use Types Packs/Day Years Used Date Smoking Tobacco: Never Assessed Comments Unknown Sex and Gender Information Value Date Recorded Sex Assigned at Not on file Legal Sex Female 1:50 PM CDT Gender Identity Not on file Sexual Orientation Not on file Plan of Treatment Health Maintenance Due Date Last Done Comments COLOGUARD (AGES 45-75) - COL ON CA SCREENING 1964 COLON MONITORING 1964 COLONOSCOPY - COLON CA SCREENING 1964 CT COLONOGRAPHY - COLON CA SCREENING 1964 Colorectal Cancer Screening 1964 FIT - COLON CA SCREENING 1964 FLEX SIG - COLON CA SCREENING 1964 LIPID TESTING 1964 MAMMOGRAM 1964 HIV SCREENING 1979 HEPATITIS C SCREENING 07/22/1982 DTAP/TDAP/TD VACCINES (1 - Tdap) 1983 PNEUMOCOCCAL VACCINE 50+ (1 of 1 - PCV) 2014 ZOSTER VACCINE (1 of 2) 2014 COVID-19 VACCINE ( - 2023-2 5 season) 2024 DEPRESSION SCREENING 06/08/2024 INFLUENZA VACCINE (Season Ended) 2025 Respiratory Syncytial Virus (RSV) Vaccine Pt: or over 60 yrs (1 - 1-dose 75+ series) 2039 HEPATITIS B VACCINE Aged Out No longe r eligible based on patient's age to complete this topic HIB VACCINE Aged Out No longer eligi ble based on patient's age to complete this topic HPV VACCINE Aged Out No longer eligi ble based on patient's age to complete this topic MENINGOCOCCAL (Group B) VACC INE SHARED DECISION-MAKING Aged Out No longer eligibl e based on patient's age to complete this topic MENINGOCOCCAL GROUPS A/C/Y/W VACCINE Aged Out No longer eligible b ased on patient's age to complete this topic Insurance [employer]
--- OUTSIDE RECORDS SUMMARY | 2024-11-09 11:31 | XMS_ITS | Clinical Summary ---
Author Organization [facility] Address [address] [place] [address] Phone Care Team Providers Care In Flight Crew Member Name Role Phone Unavailable Primary Care Provider Unavailabl e Allergies Active Allergy Reactions Criticality Noted Date Comments Sulfa Antibiotics Hives 06/29/2017 Medications ALPRAZolam (XANAX) 0.5 MG Tablet 2 7 Active oxyCODONE-aceta minophen (PERCOCET) 5-325 MG Tablet 0 8 Active zolpidem (AMBIEN) 5 MG Tablet take 1 Tablet by ORAL route every day at bedtime 7 Active SUMAtriptan (IMITREX) 50 MG Tablet Take by mouth. 7 Active ondansetron (ZOFRAN) 4 MG Tablet 7 Active famotidine (PEPCID) 20 MG Tablet 7 Active citalopram (CELEXA) 40 MG Tablet Take by mouth. 7 Active ticagrelor (BRILINTA) 90 MG Tablet Take by mouth. 7 Active atorvastatin (LIPITOR) 80 MG Tablet take 1 Tablet by oral route every day 7 Active albuterol (PROAIR HFA) 108 (90 Base) MCG/ACT Aerosol Solution inhale 2 puff by inhalation route every 4 - 6 hours as needed 7 Active acyclovir (ZOVIRAX) 400 MG Tablet TAKE ONE TABLET BY MOUTH TWO TIMES A DAY 5 Active Family History Medical History Relation Name Comments Diabetes Brother Diabetes Mother Heart Disease Mother Hypertension Mother Cancer Sister Kidney Disease Sister Relation Name Status Comments Brother Mother Sister Social History Tobacco Use Types Packs/Day Years Used Date Smoking Tobacco: Every Day Cigarettes Smokeless Tobacco: Never Tobacco Cessation:Ready to Q uit: Yes; Counseling Given: Yes Comments:maybe four cigarettes a day Alcohol Use Standard Drinks/Week Comments No 0 (1 standard drink = 0.6 oz pur e alcohol) Sexually Active Control Partners Comments Yes Male Comments No Sex and Gender Information Value Date Recorded Sex Assigned at Not on file Legal Sex Female 8:54 PM CDT Gender Identity Not on file Sexual Orientation Not on file Last Filed Vital Signs Vital Sign Reading Time Taken Comments Blood Pressure 94/62 08/03/2017 10:42 AM SUPPORTIVE EMPLOYMENT CASE MANAGER Pulse 55 08/03/2017 10:42 AM SUPPORTIVE EMPLOYMENT CASE MANAGER Temperature 36.7 C (98.1 F) 08/03/2017 10:42 AM SUPPORTIVE EMPLOYMENT CASE MANAGER Respiratory Rate 16 08/03/2017 10:42 AM SUPPORTIVE EMPLOYMENT CASE MANAGER Oxygen Saturation 92% 08/03/2017 10:42 AM SUPPORTIVE EMPLOYMENT CASE MANAGER Inhaled Oxygen Concentration - - Weight 49.9 kg (110 lb) 08/03/2017 10:42 AM SUPPORTIVE EMPLOYMENT CASE MANAGER Height 162.6 cm (5' 4) 08/03/2017 10:42 AM SUPPORTIVE EMPLOYMENT CASE MANAGER Body Mass Index 18.88 08/03/2017 10:42 AM SUPPORTIVE EMPLOYMENT CASE MANAGER Plan of Treatment Health Maintenance Due Date Last Done Comments Hepatitis C Virus (HCV) Screening 1964 TdaP Immunization 1964 Colonoscopy 2009 Colorectal Cancer Screening 2009 Cologuard 2014 Immunochemical Fecal Occult Blood 2014 Pneumococcal Immunization (5 0+ years) (1 of 1 - PCV) 2014 Zoster Immunization (1 of 2) 2014 SARS-COV-2 Immunization (1 - 2023- season) 2024 Influenza Immunization (Seas on Ended) 2025 06/10/2016, 03/12/2015 Respiratory Syncytial Virus (RSV) Immunization (Adult) (1 - 1-dose 75+ series) 2039 Hepatitis B Immunization Aged Out No longer eligible based on patient's age to complete this topic Human Papillomavirus (HPV) Immunization Aged Out No longer eligible b ased on patient's age to complete this topic Meningococcal Immunization (ACWY) Aged Out No longer eligible b ased on patient's age to complete this topic Rotavirus Immunization Aged Out No lo nger eligible based on patient's age to complete this topic
--- OUTSIDE RECORDS SUMMARY | 2024-11-09 11:31 | XMS_ITS | Clinical Summary ---
Author Organization 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 She describes losing weight after cardiac [...] trial Zantac 75 twice daily as needed [id number]. Will cut back on the peppers and tomatoes from the garden. He will follow up here with absolutely any change in, worsening, or non improvement in condition. Pain of upper abdomen 01/05/2017 Assessment & Plan (07/02/2018 10:56 AM CASH MANAGER): Chronic. Associated with weight loss. May be [...] C Assessment & Plan (07/02/2018 10:57 AM CASH MANAGER): Patient has been treated in the past [...] Y RS) 09/26/2020 Pneumococcal Polysaccharide PPV23 02/08/2015 Surgical History Surgery Date Site/Laterality Comments OTHER SURGICAL HISTORY 06/08/1992 - 06/07/1993 Endometriosis: Lap OTHER SURGICAL HISTORY 8 years ago intestinal surgery for bowel blockage CORONARY ARTERY BYPASS GRAFT 06/08/2015 - 06/07/2016 triple - stents in both legs TONSILLECTOMY as a child CYSTOSTOMY W/ BLADDER BIOPSY COLONOSCOPY UPPER GASTROINTESTINAL ENDOSCOPY CYSTOSCOPY 02/11/2023 BLADDER HYDRODISTENTION: KENALOG INJECTION FULGURATION OF HUNNER LESIONS ESOPHAGOGASTRODUODENOSCOPY 04/28/2023 Medical History Medical History Date Comments Hx Other Medical Endometriosis; Comments: MTB 09/14/2014 - Rheumatoid arthritis (HCC) Rheum atoid arthritis; Comments: OAC 03/04/2015 - Chronic obstructive pulmonar y disease (HCC) COPD Hx Other Medical Polycythemia Medication monitoring encounter Lupus Crohn's colitis (HCC) Anemia Chronic constipation GERD (gastroesophageal reflux disease) Hyperlipidemia Coronary artery disease Myocardial infarction (HCC) CHF (congestive heart failure) (HCC) Hepatitis C virus infection 2005 Hematuria Interstitial cystitis Smoking Family History Medical History Relation Name Comments Pancreatic cancer Brother Cancer, pa ncreas; Diabetes Mother Diabetes mellit us; Heart disease Mother Heart disease; Hypertension Mother Hypertension; Osteoporosis Mother Osteoporosis; Colon cancer Sister Cancer, colon; Anesthesia problems Neg Hx Malig Hyperthermia Neg Hx Ovarian cancer Neg Hx Pseudochol deficiency Neg Hx Thyroid cancer Neg Hx Relation Name Status Comments Brother Father unknown Other Mother Sister Social History Tobacco Use Types [...] on file Legal Sex Female 3:35 AM CASH MANAGER Gender Identity Female 05/23/2021 8:56 AM CASH MANAGER Sexual Orientation Not on file Obstetrics History Para Term AB IAB SAB Ectopic Multiple Livin g Live Births 0 0 0 0 0 0 0 0 0 0 0 Last Filed Vital Signs Vital Sign Reading [...] 03/30/2024 11:07 AM CDT Plan of Treatment Health Maintenance Due Date Last Done Comments DTaP/Tdap/Td Vaccine (1 - Tdap) 1975 Zoster Vaccine (1 of 2) 1983 Pneumococcal vaccine <65 (2 of 2 - PCV) 02/09/2016 02/08/2015 Cervical Cancer Screening 11/06/2019 11/05/2018, Depression Screening 06/27/2022 06/27/2021, 07/02/2018, 04/13/2017, Additional history exists Regular Well Visit/Exam 18-64 06/27/2022 06/27/2021, 11/05/2018 Covid-19 Vaccine (4 - 2023-2 5 season) 2024 04/12/2021, 02/27/2021, 09/26/2020 Breast Cancer Screening-Mammogram 08/30/2024 024, 08/27/2022 Influenza Vaccine (Season Ended) 2025 03/28/2021, 03/16/2017, 06/10/2016, Additional history exists Lung Cancer Screening 07/19/2025 07/18/2024 , 04/08/2024, 12/23/2023, Additional history exists Colon Cancer Screening-Colonoscopy 02/27/2032 02/26/2022, 03/03/2017, 01/02/2012 Hepatitis C Screening Completed 02/13/2022 , 02/13/2022, 02/13/2022, Additional history exists Colon Cancer Screening-CT Colonography Discontinued 02/26/2022, 03/03/2017, 01/02/2012 Colon Cancer Screening-DNA Stool Discontinued 02/26/2022, 03/03/2017, 01/02/2012 Colon Cancer Screening-FIT Discontinued 02/26, 03/03/2017, 01/02/2012 Colon Cancer Screening-Sigmoidoscopy Discontinued 02/26/2022, 03/03/2017, 01/02/2012 Medical Devices Implanted Type Area Drum Attendant Device Identifier Shelf Expiration Date Model / Serial / Lot Express Ld Stent Iliac Procedures Procedure Name Priority Date/Time Associated Diagnosis Comments CT CHEST WO CONTRAST F/U LUNG SCREEN PROTOCOL Schedule Routine, Read Routine (OP Routine) 07/18/2024 6:54 AM CASH MANAGER Other nonspecific abnormal finding of lung field [...] F/U Lung Screen Protocol (07/18/2024 6:54 AM CASH MANAGER) Anatomical Region Laterality Modality Chest N/A Computed Tomogra phy 07/18/2024 8:59 AM CASH MANAGER Narrative 07/18/2024 9:19 AM CASH MANAGER EXAM DESCRIPTION: CT CHEST WO CONTRAST F/U [...] Dez Peguero M.D. LB: NASEEM Report ID: [id number] Reading Location: [place] [address] Procedure Note Dez Peguero MD - 07/18/2024 EXAM DESCRIPTION: CT [...] nodule in the medial left upper lobe ([id number]) is unchanged. Noncalcified 3 mm nodule in [...] Dez Peguero M.D. LB: LB Report ID: [id number] Reading Location: [id number] Cale Meehan MD IMG CT PROCEDURES Regina [...] of the examination. Electronically signed by: VERONICA Cope 08/31/2023 8:20 AM CDT EXAMINATION: DIAGNOSTIC MAMMOGRAM [...] either breast on mammogram. us Monalisa Barnes NP IMG MAMMO PROCEDURES Final Result * COLONOSCOPY (02/26/2022 12:51 PM CDT) Anatomical Region Laterality Modality Other Narrative Procedure Note Zack Avilez MD - 02/26/2022 12:51 PM CDT [facility] Patient Name: Estela Barney Procedure [...] bowel preparation was evaluated using the BBPS ([place] Bowel Preparation Scale) with scores of: Right [...] for surveillance. Procedure Code(s): --- Professional --- 89703, Colonoscopy, flexible; with biopsy, singleor multiple Diagnosis Code(s): --- Professional --- D12.5, Benign neoplasm of sigmoid colon R63.4, Abnormal weight loss CPT copyright 2020 [employer]. All rights reserved. The codes documented in this report are preliminary and upon section laborer reviewmay be revised to meet current compliance requirements. Electronically signed by Zack Avilez MD Zack Avilez M.D. 02/26/2022 1:42:48 PM Number of Addenda: 0 Note Initiated On: 02/26/2022 12:51 PM Zack Avilez MD ENDOSCOPY PROCEDURES Final Resul t * Hepatitis C (HCV) RNA PCR, quantitative (02/13/2022 9:26 AM CDT) HCV RNA result Not Detected [facility] Comment: The quantifiable range of this assay is 15 IU/mL to 100,000,000 IU/mL (1.18 log IU/mL to 8.00 log IU/mL). Testing was performed by the VENK[facility] 6800 HCV Test ([employer] Testing performed at [facility] Current Interpretive Data was last revised on 2021 Testing performed by: [facility], [address] [place]., [address] Blood 02/13/2022 9:26 AM CDT 02/14/2022 3:03 AM CDT Zack Avilez MD LAB MICROBIOLOGY - GENERAL ORDER SAMEER Final Result [facility] [address] [place] [address] * Imaging Pap and HPV mRNA E6/E7 (11/05/2018 9:11 AM CDT) Report status CANCELED [facility] Comment:Result canceled by rebecca thomas ancillary. CLINICAL INFORMATION: [facility] [...] has been evaluated with computer assisted technology. Lining Mechanic [facility] - Comment: MAYITO VIRAMONTES(ASCP) CT screening location: [place] [address] [place] [address] Review finish inspector CANCELED [facility] Comment:Result canceled by t he ancillary. Pathologist CANCELED [facility] Comment:Result canceled by t he ancillary. Comment [facility] Comment: EXPLANATORY NOTE: The Pap is a [...] High Risk E6/E7 Not Detected Not Detected [facility] [place] Comment: This test was performed using the APTIMA HPV Assay ([employer] This assay detects E6/E7 viral messenger RNA (mRNA) from 14 high-risk HPV types (16,18,31,33,35,39,45,51,52,56,58,59,66,68). The analytical performance characteristics of this assay have been determined by [employer]. The modifications have not been cleared or approved by the FDA. This assay has been validated pursuant to the CLIA regulations and is used for clinical purposes. Endocervical 11/05/2018 9:11 AM CDT 11/08/2018 8:28 AM CDT Narrative Resulting Agency Comment Performing Organization Information: Site ID: [id number] Name: [facility] Address: [address] [address] Director: Riley Soto D.O., MPH Site ID: [place] Name: [facility] Address: [address] [address] Director: Marivel Gil Michelle Bradshaw KEYING MACHINE OPERATOR LAB PATHOLOGY ORDERABLES Final Result LASHAUN [facility] [facility] [place] from Last 3 Months or Most Recently Relevant to Health Maintenance Insurance [employer] OPEN ACCESS [employer] OPEN ACCESS [place] [employer] Advance Directives For more information, please contact: [phone] Documents on File Type Date Recorded Patient Iuss Acoustic Analyst Expl anation ADVANCE DIRECTIVE 04/01/2019 12:27 PM * Full Code (Latest Code Status on File) Date Activated Date Inactivated Comments 10/21/2017 12:55 PM 10/23/2017 12:11 PM Care Teams Circuits Engineer Relationship Specialty Start Date End Date Jevon Wilson MD [address] [place] [address] PCP - General 04/23/17 Ace Young MD [address] [place] [address] Consulting Physician Urology 05/29/21
[2024-11-09 11:34] VITALS: BP 152/81; PULSE 87; RESP 18; TEMP 36.6; O2SAT 100
--- OUTSIDE RECORDS SUMMARY | 2024-11-09 11:34 | XMS_ITS | CONTINUITY OF CARE DOCUMENT ---
Author Name whitney olson Address Unknown Organization [facility] Address [address] [place] [address] Phone [phone] Care Team Providers Care Interdisciplinary Professor Name Role Phone Herbert MERIDA, Raghav Unavailable CAROLINE RAMIREZ MD Unavailable CAROLINE RAMIREZ MD Unavailable [phone] PROBLEMS Condition Status Date Provider Notes Nausea active Taty Villaseñor RN Iron deficiency active Taty Villaseñor RN Family History of Hypertension: active ? Weston Godinez MD Physical exam completed - Raghav Godinez MD CAD active Raghav Godinez MD Cardiac arrest active Raghav Godinez MD Hyperlipidemia active Raghav Godinez MD Tobacco abuse active Raghav Godinez MD Peripheral Vascular Disease active Raghav middleton MD Coronary Heart Disease active ? Raghav Godinez MD Hypertension active ? Raghav Godinez MD Fatigue active Raghav Godinez MD Abdominal pain active Raghav Godinez MD Headache, mixed active Raghav Godinez MD Chest pain-type to be determined active Raghav Godinez MD AV block, complete active Raghav Godinez MD Lung nodule active Raghav Godinez MD Pre-op cardiovascular exam active Raghav chapa MD ENCOUNTERS Date Type Provider Location Encounter Diag nosis - In-person encounter Office Visit Raghav Godinez MD [facility] - In-person encounter Office Visit Raghav Godinez MD [facility] Pre-op cardiovascular exam - In-person encounter Office Visit Raghav Godinez MD [facility] Lung nodule - In-person encounter Office Visit Raghav Godinez MD [facility] - In-person encounter Office Visit Raghav Godinez MD [facility] - In-person encounter Office Visit Raghav Godinez MD [facility] - In-person encounter Office Visit Raghav Godinez MD [facility] - In-person encounter Office Visit Raghav Godinez MD [facility] - In-person encounter Office Visit Raghav Godinez MD [facility] AV block, complete - In-person encounter Office Visit Raghav Godinez MD [facility] - In-person encounter Office Visit Raghav Godinez MD [facility] Chest pain-type to be determined - In-person encounter Office Visit Raghav Godinez MD [facility] - In-person encounter Office Visit Raghav Godinez MD [facility] - In-person encounter Office Visit Raghav Godinez MD [facility] - In-person encounter Office Visit Raghav Godinez MD [facility] Headache, mixed - In-person encounter Office Visit Raghav Godinez MD [facility] Abdominal pain - In-person encounter Office Visit Raghav Godinez MD [facility] Physical exam - In-person encounter Office Visit Raghav Godinez MD [facility] - In-person encounter Office Visit Raghav Godinez MD [facility] - In-person encounter Office Visit Raghav Godinez MD [facility] Family History of Hypertension:CADCardiac arrestHyperlipidemiaTobacco abusePeripheral Vascular DiseaseCoronary Heart DiseaseHypertensionFatigue VITAL SIGNS Date Observation Value Provider Body Mass Index (Ratio) 20.13 kg/m2 Weston Godinez MD pulse rate 59 /min Lorie Song s oxygen saturation, oximetry 98 % Lorie Obregon blood pressure, diastolic 70 mm[Hg] Ti andrea Obregon blood pressure, systolic 120 mm[Hg] Tif samuel Obregon blood pressure, cuff size small Ti andrea Obregon weight E&M 121 [lb_av] Lorie Saunder s height E&M 65 [in_i] Lorie Saunder s Body Mass Index (Ratio) 18.14 kg/m2 Weston Godinez MD blood pressure, cuff size regular Ke joshuai Norbertkirbykarielder blood pressure, diastolic 80 mm[Hg] Ke rri Rakelelder blood pressure, systolic 124 mm[Hg] Gene Govea oxygen saturation, oximetry 98 % Lor Govea pulse rate 71 /min Lor Guaman lder weight E&M 109 [lb_av] Lor Guaman lder height E&M 65 [in_i] Lor Guaman lder Body Mass Index (Ratio) 17.80 kg/m2 Weston Godinez MD weight E&M 107 [lb_av] Dennise Byrd blood pressure, cuff size regular Arnav Byrd blood pressure, diastolic 78 mm[Hg] Arnav ledezma Matador blood pressure, systolic 98 mm[Hg] Brian [facility] oxygen saturation, oximetry 98 % [facility] pulse rate 64 /min Dennise Matador respiratory rate E&M 16 /min Dennise Ambrocio illerefugio height E&M 65 [in_i] [facility] Body Mass Index (Ratio) 17.80 kg/m2 Weston Godinez MD blood pressure, cuff size small Ke rri Xuan blood pressure, diastolic 100 mm[Hg] Ke rri Norbertuenekarieldemmanuel blood pressure, systolic 162 mm[Hg] Gene Govea oxygen saturation, oximetry 97 % Lor Govea respiratory rate E&M 12 /min Lor roldan pulse rate 73 /min Lor Guaman [facility] weight E&M 107 [lb_av] Lor Rakele [facility] height E&M 65 [in_i] Lor Rakele [facility] Body Mass Index (Ratio) 19.30 kg/m2 Weston Godinez MD blood pressure, diastolic 71 mm[Hg] Te ri Lavelle blood pressure, systolic 116 mm[Hg] Ter i Valderrama oxygen saturation, oximetry 100 % Anna Marie Valderrama respiratory rate E&M 15 /min Anna Marie Jose Carlos faustin pulse rate 56 /min Anna Marie Valderrama weight E&M 116 [lb_av] Anna Marie Valderrama Body Mass Index (Ratio) 17.14 kg/m2 Weston Godinez MD blood pressure, cuff size regular Ke joshuai Xuan blood pressure, diastolic 60 mm[Hg] Ke rri Gruenenfelder blood pressure, systolic 104 mm[Hg] Gene ri Gruenenfelder oxygen saturation, oximetry 98 % Lor Gruenenfelder respiratory rate E&M 14 /min Lor G ruenenfelder pulse rate 64 /min Lor Grflorentinonenfe lder weight E&M 103 [lb_av] Lor Gruenenfe lder height E&M 65 [in_i] Lor Grflorentinonenfe er Body Mass Index (Ratio) 17.54 kg/m2 Weston Godinez MD blood pressure, cuff size small Ke rri Gruenenfelder blood pressure, diastolic 67 mm[Hg] Ke rri Norbertuenenfelder blood pressure, systolic 87 mm[Hg] Gene Kirkpatricknenfelder oxygen saturation, oximetry 98 % Lor Ellingtonelder respiratory rate E&M 16 /min Lor Krys vladimirenenfelder pulse rate 58 /min Lor Ellingtone er weight E&M 105.4 [lb_av] Lor Ellington daniele height E&M 65 [in_i] Lor Ellingtone er Body Mass Index (Ratio) 16.64 kg/m2 Weston Godinez MD blood pressure, cuff size regular La temi Ezequiel blood pressure, diastolic 65 mm[Hg] La temi Adel blood pressure, systolic 110 mm[Hg] Las honda Adel oxygen saturation, oximetry 98 % Danisha Adel respiratory rate E&M 18 /min Lashond a Ezequiel pulse rate 61 /min Danisha Ezequiel weight E&M 100 [lb_av] Danisha Shieldsden height E&M 65 [in_i] Danisha Adel Body Mass Index (Ratio) 17.30 kg/m2 Weston Godinez MD blood pressure, diastolic 63 mm[Hg] Li nkLogic blood pressure, systolic 113 mm[Hg] Ying kLogic blood pressure, diastolic 63 mm[Hg] Ca therine Amandeep blood pressure, systolic 113 mm[Hg] Cat herine Corunna oxygen saturation, oximetry 98 % Tanya Amandeep respiratory rate E&M 16 /min Catheri ne Amandeep pulse rate 56 /min Tanya Corunna weight E&M 104 [lb_av] Tanya Amandeep blood pressure, cuff size regular Ca therine Amandeep height E&M 65 [in_i] Tanya Corunna Body Mass Index (Ratio) 19.63 kg/m2 Weston Godinez MD blood pressure, cuff size regular Alex issharla Patricia oxygen saturation, oximetry 97 % Darcy Madison blood pressure, diastolic 70 mm[Hg] Kr isty Patricia blood pressure, systolic 110 mm[Hg] Kri stdillon Patricia pulse rate 69 /min Darcy Madison respiratory rate E&M 19 /min Darcy Madison weight E&M 118 [lb_av] Darcy Madison height E&M 65 [in_i] Darcy Madison Body Mass Index (Ratio) 19.63 kg/m2 Weston Godinez MD blood pressure, diastolic 75 mm[Hg] Rh onda Apoorva blood pressure, systolic 115 mm[Hg] Rho brijesh Guerin oxygen saturation, oximetry 98 % Maureen Apoorva respiratory rate E&M 18 /min Maureen Apoorva pulse rate 65 /min Maureen Apoorva weight E&M 118 [lb_av] Maureen Apoorva blood pressure, resting No Estevann richard Guerin blood pressure, cuff size regular Rh aretha Apoorva height E&M 65 [in_i] Maureen Apoorva Body Mass Index (Ratio) 18.80 kg/m2 Weston Godinez MD blood pressure, diastolic 59 mm[Hg] Fe babatunde Epps blood pressure, systolic 109 mm[Hg] Brad icia Epps oxygen saturation, oximetry 98 % Karime Epps respiratory rate E&M 16 /min Karime Epps weight E&M 113 [lb_av] Karime Epps height E&M 65 [in_i] Karime Epps Body Mass Index (Ratio) 20.30 kg/m2 Weston Godinez MD blood pressure, cuff size regular Alex Lermaby blood pressure, diastolic 68 mm[Hg] Alex isty Patricia blood pressure, systolic 110 mm[Hg] Alexi dillon Lermaby respiratory rate E&M 17 /min Darcy Patricia pulse rate 52 /min Darcy Patricia oxygen saturation, oximetry 98 % Darcy Patricia weight E&M 122 [lb_av] Darcy Madison height E&M 65 [in_i] Darcy Patricia Body Mass Index (Ratio) 18.27 kg/m2 Weston Godinez MD blood pressure, cuff size small Kr mario alberto Lermaby blood pressure, diastolic 80 mm[Hg] Alex isty Madison blood pressure, systolic 118 mm[Hg] Kri sty Madison oxygen saturation, oximetry 98 % Darcy Patricia pulse rate 65 /min Darcy Madison weight E&M 109.8 [lb_av] Darcy Patricia respiratory rate E&M 18 /min Darcy Patricia height E&M 65 [in_i] Darcy Madison Body Mass Index (Ratio) 17.97 kg/m2 Weston Godinez MD pulse rate 75 /min Olya Block oxygen saturation, oximetry 72 % Olya Block blood pressure, diastolic 70 mm[Hg] [facility] blood pressure, systolic 100 mm[Hg] Vanessa tseringcarol ann [facility] respiratory rate E&M 16 /min [facility] weight E&M 108 [lb_av] Olya Block height E&M 65 [in_i] [facility] Body [facility] Index (Ratio) 17.47 kg/m2 Weston Godinez MD pulse rate 52 /min Darcy Lerma respiratory rate E&M 17 /min Darcy Lerma blood pressure, cuff size regular Alex Lermaby weight E&M 105 [lb_av] Darcy Lerma height E&M 65 [in_i] Darcy Lerma Body Mass Index (Ratio) 17.97 kg/m2 Weston Godinez MD blood pressure, diastolic 66 mm[Hg] Emmanuel Pierce blood pressure, systolic 110 mm[Hg] Elizabeth Pierce respiratory rate E&M 169 /min Bren Barr pulse rate 53 /min Bren Quigley oxygen saturation, oximetry 99 % Bren Pierce weight E&M 108 [lb_av] Bren Quigley height E&M 65 [in_i] Bren Quigley Body Mass Index (Ratio) 21.30 kg/m2 Weston Godinez MD oxygen saturation, oximetry 99 % Federico Flores blood pressure, diastolic 50 mm[Hg] Nabeel Flores blood pressure, systolic 115 mm[Hg] Darling Flores respiratory rate E&M 16 /min Federico Adamon pulse rate 57 /min Federico Adamo n weight E&M 128 [lb_av] Federico Adamo n height E&M 65 [in_i] Federico Adamo n Body Mass Index (Ratio) 23.39 kg/m2 Dot Villaseñor RN blood pressure, cuff size regular Je ssica N Valdemar blood pressure, diastolic 60 mm[Hg] Je ssica N Valdemar blood pressure, systolic 110 mm[Hg] Breanna reggie N Valdemar oxygen saturation, oximetry 99 % Francisca N Valdemar respiratory rate E&M 18 /min Francisca N Valdemar pulse rate 68 /min Francisca N Wilso n weight E&M 140.6 [lb_av] Francisca N Wils on Body Mass Index (Ratio) 23.46 kg/m2 Dot Villaseñor RN Body Mass Index (Ratio) 23.46 kg/m2 Weston Godinez MD blood pressure, cuff size regular Je ssica N Valdemar blood pressure, diastolic 50 mm[Hg] Je ssica N Valdemar blood pressure, systolic 90 mm[Hg] Breanna reggie N Valdemar oxygen saturation, oximetry 99 % Francisca N Valdemar respiratory rate E&M 16 /min Francisca N Valdemar pulse rate 50 /min Francisca N Wilso n weight E&M 141 [lb_av] Francisca N Wilso n blood pressure, diastolic 60 mm[Hg] Alex Gomez blood pressure, systolic 80 mm[Hg] Maggie Gomez oxygen saturation, oximetry 98 % Darcy Gomez respiratory rate E&M 17 /min Darcy Gomez pulse rate 68 /min Darcy Gomez blood pressure, cuff size regular Alex Gomez weight E&M 141 [lb_av] Darcy Gomez height E&M 65 [in_i] Darcy Gomez Body Mass Index (Ratio) 24.63 kg/m2 Weston Godinez MD blood pressure, diastolic 60 mm[Hg] Derrick Jurado blood pressure, systolic 100 mm[Hg] Ankita Adrien oxygen saturation, oximetry 98 % Ankita Jurado respiratory rate E&M 16 /min Ankita ch pulse rate 49 /min Ankita Jurado weight E&M 148 [lb_av] Ankita Jurado height E&M 65 [in_i] Ankita Jurado blood pressure, resting No Ankita Jurado ALLERGIES Allergy Name Onset Date Reaction Criticality Status STATINS High Criticality active SULFA High Criticality active RESULTS Date Observation Value Provider Reference Range Interpretation Location Estimated Glomerular Filtration Rate (calc) 103 mL/min/{1.7 3_m2} [facility] C, [place] [address] creatine, serum 0.65 mg/dL [facility] 0.60-1.10 Normal C, [place] [address] urinalysis, microscopic examination See report [facility] nitrate, urine Negative [facility] Negative urobilinogen, urine, semiquantitative (dipstick) 0.2 [facility] 0.2-1.0 bilirubin, urine Negative [facility] Negative hemoglobin, urine, by dipstick Negative [facility] Negative ketones, urine, by test strip Negative [facility] Negative glucose, urine Negative [facility] Negative protein, urine, semiquantitative (dipstick) Negative [facility] Negative/Tra ce leukocyte esterase, urine, by dipstick Negative [facility] Negative appearance, urine Clear [facility] Clear urine color Yellow [facility] Yellow pH, urine, semiquantitative 5.0 [facility] 5.0-7.5 specific gravity, body fluid >=1.030 [facility] 1.005-1.030 Abnormal folate, serum 13.8 NG/MLM [facility] 4.4 - 31.0 vitamin b12, serum 454.9 pg/mL [facility] 211.0 - 946.0 very low density lipoproteins 18.6 mg/dL [facility] 5.0 - 40.0 LDL/HDL (low-density lipoprotein/high-de nsity lipoprotein) ratio 1.8 RATIO [facility] - lipoprotein, beta, serum, point, quantitative, calculated 96.4 (?) [facility] 0.0 - 100.0 HDL cholesterol, serum 54.0 mg/dL [facility] 45.0 - 65.0 cholesterol, serum 169.0 mg/dL [facility] 0.0 - 200.0 triglyceride, serum, fasting 93.0 mg/dL [facility] 0.0 - 150.0 ferritin, serum 56.1 ng/mL [facility] 13.0 - 150.0 urea nitrogen/creatinine ratio, serum 18.8 [facility] - Estimated Glomerular Filtration Rate (calc) 80.1 (?) [facility] 59.0 - chloride, serum 102.9 mmol/L [facility] 98.0 - 107.0 potassium, serum 5.4 mmol/L [facility] 3.5 - 5.1 High sodium, serum 142.0 mmol/L [facility] 136.0 - 145.0 creatinine, serum 0.8 mg/[facility] 0.5 - 1.0 carbon dioxide, venous blood 28.0 mmol/L [facility] 22.0 - 29.0 calcium, serum 10.2 mg/dL [facility] 8.6 - 10.2 urea nitrogen, blood 15.0 mg/dL [facility] 6.0 - 20.0 blood glucose, random 91.0 mg/dL [facility] 74.0 - 99.0 red blood cell distribution width, size density 57.2 fL [facility] - immature granulocytes, percentage of total cells, blood 0.6 % [facility] - nucleated red blood cells as percent of blood leukocytes 0.0 % [facility] - red blood cell (erythrocyte) count, per high power field 0.0 10*3/UL [facility] - eosinophils as percent of blood leukocytes 2.0 % [facility] - neutrophils as percent of blood leukocytes 58.3 % [facility] - Absolute Neutrophils 5.2 CELLS/UL [facility] 1.5 - 7.8 basophils as percent of blood leukocytes 0.6 % [facility] - [facility] Basophils 0.1 CELLS/UL [facility] 0.0 - 0.2 monocytes as percent of blood leukocytes 10.6 % [facility] - [facility] Monocytes 0.9 CELLS/UL [facility] 0.2 - 1.0 lymphocytes as percent of blood leukocytes 27.9 % [facility] - [facility] Lymphocytes 2.5 CELLS/UL [facility] 0.9 - 3.9 mean platelet volume 13.3 (?) [facility] - platelet count 219.0 THOUSAND/UL [facility] 100.0 - 400.0 mean corpuscular hemoglobin concentration, RBC 31.0 G/DL [facility] 31.0 - 38.0 mean corpuscular hemoglobin, RBC 31.6 pg [facility] 25.0 - 35.0 mean corpuscular volume, RBC 101.8 fL [facility] 75.0 - 100.0 High hematocrit, blood 50.3 % [facility] 35.0 - 55.0 hemoglobin, blood 15.6 g/dL [facility] 11.5 - 16.5 erythrocyte count, whole blood 4.9 MILLION/UL [facility] 3.5 - 5.5 iron, serum 82.0 ug/dL [facility] 25.0 - 156.0 iron saturation percent, serum 19.8 % [facility] 20.0 - 50.0 Low iron binding capacity, total 414.4 ug/dL [facility] 250.0 - 450.0 prothrombin time (patient) 10.2 s [facility] 9.0 - 11.5 international normalized ratio (INR) 1.0 [facility] 0.9 - 1.1 reticulocyte count, absolute 0.120 10*6 CELLS/UL [facility] - reticulocyte count, blood, uncorrected 2.43 % [facility] 0.50 - 2.00 High HISTORY OF MEDICATION USE Medication Status Instructions Dates Provider Indications Com ments ergocalciferol (vitamin D2) 1,250 mcg (50,000 unit) capsule active Take 1 capsule by mouth once a week Jeremiah Noel NP Anoro Ellipta 62.5-25 mcg/actuation blister with device active Inhale 2 puff as directed twice a day Jeremiah Noel NP atorvastatin 40 mg tablet active Take 1 tablet by mouth once a day Lor Govea nitroglycerin 0.4 mg tablet, sublingual active DISSOLVE ONE TAB UNDER TONGUE EVERY FIVE (5) MINUTES FOR THREE (3) TOTAL DOSES NEEDED FOR CHEST PAIN. IF NO RELIEF AFTER 3RD DOSE, GO TO ER 08/04 Luma Yoo ezetimibe 10 mg tablet completed Take 1 tablet by mouth once a day 10/06 - Lor Govea Nexlizet 180-10 mg tablet completed Take 1 tablet by mouth once a day 09/17 - 10/06 Raghav Godinez MD Protonix 20 mg tablet,delayed release (DR/EC) active take 1 pill a day Lor Govea Xanax 0.5 mg tablet active Take 1 table t by mouth three times a day as needed Raghav Godinez MD dicyclomine 10 mg capsule completed TAKE 1 CAPSULE(10MG) BY ORAL ROUTE BEFORE MEALS THREE TIMES A DAY - 09/17 Raghav Godinez MD hydroxychloroquine 200 mg tablet active take 1 pill twice a day Lor Govea sumatriptan succinate 50 mg tablet completed - Lor Govea atorvastatin 40 mg tablet completed TAKE 1 TABLET(40MG)B Y ORAL ROUTE DAILY - Raghav Godinez MD Nitrostat 0.4 mg tablet, sublingual completed tablet under tongue as needed 08/22 - 08/04 Luma Yoo albuterol sulfate 90 mcg/actuation HFA aerosol inhaler active as needed 08/16 Darcy Gomez ADVAIR HFACG/ACT INHALATION AEROSOL completed as needed 08/16 - 09/17 Raghav Godinez MD Adult Aspirin Regimen 81 mg tablet,delayed release (DR/EC) completed Take 1 tablet by mouth once a day - Raghav Godinez MD CALCIUM + D TABLET [place] Take 78296 unit once a week - 09/17 Raghav Godinez MD gabapentin 100 mg capsule active 3 tablet by mouth every night 08/26 Darcy Gomez oxycodone-acetamino phen 5-325 mg tablet active Take 1 tablet by mouth every six hours as needed 07/05 Darcy Gomez #120, 30 days supply, Prescribed by Jevon Ramirez , Filled 05/13/2018 Plavix 75 mg tablet active 1 tablet onc e a day 09/03 Darcy Gomez PROTONIX 20 MG ORAL TABLET DELAYED RELEASE completed ONE TAB DAILY - Darcy Gomez AUGMENTIN 875-125 MG ORAL TABLET completed for 10 days 11/19 - Raghav Godinez MD BRILINTA 90 MG ORAL TABLET completed Take 1 tablet twice daily. 10/20 - 09/03 Francisca Aldrich ZOLPIDEM TARTRATE 5 MG ORAL TABLET completed TAKE 1 TABLET BY ORAL ROUTE EVERYDAY AT BEDTIME. 10/15 - 08/26 Olya Block Xanax 0.25 mg tablet completed Take 1 tablet by mouth three times a day 10/15 - 02/20 Raghav Godinez MD VITAMIN D3 CAPSULE completed 1000 UNITS TAKE 1 TABLET BY ORAL EVERYDAY 10/15 - Bren Pierce PROVERA 2.5 MG ORAL TABLET completed TAKE ONE TABLET BY ORAL EVERYDAY 10/15 - Darcy Gomez ProAir RespiClick 90 mcg/actuation aerosol powdr breath activated completed 90 every four to six hours as needed 10/15 - Jeremiah Noel NP ASPIRIN EC 81 MG ORAL TABLET DELAYED RELEASE completed TAKE ONE TABLET BY ORAL EVERYDAY 10/15 - Raghav Godinez MD ACETAMINOPHEN 325 MG ORAL TABLET completed EVERY SIX HOURS NEEDED FOR PAIN 10/15 - Raghav Godinez MD HYDROCODONE completed 5MG TAKE ONE TABLET BY ORAL ROUTE NEEDED FOR PAIN 10/15 - 07/28 Darcy Gomez ESTRADIOL 1 MG ORAL TABLET completed TAKE ONE TABLET BY ORAL ROUTE EVERYDAY 10/15 - Darcy Gomez citalopram 40 mg tablet active Take 1 tablet by mouth once a day 10/15 Raghav Godinez MD atorvastatin 80 mg tablet completed Take 1 tablet by mouth once a day 10/15 - 02/20 Raghav Godinez MD acyclovir 400 mg tablet active Take 1 tablet by mouth twice a day 10/15 Darcy Gomez SOCIAL HISTORY Date Observation Value Provider Underweight no Raghav Blue personal history of marijuana use yes Raghav Godinez MD drug use no Raghav Blue alcohol use no Raghav Blue passive cigarette sm gayla exposure no Raghav Godinez MD smoking/tobacco cess ation, patient education and counseling contraindicated Raghav Godinez MD chewing tobacco use Never Raghav middleton MD number of years as a smoker 51 a Raghav Godinez MD smoking history, tot al pack/day 0.5 Raghav Godinez MD cigarette use yes Raghav Godinez MD smoking status Current every day smoker R kelly Godinez MD Underweight yes Raghav Blue personal history of marijuana use yes Jeremiah Bonareri PAPER CUTTER OPERATOR number of years as a smoker 51 a Jeremiah Bonareri PAPER CUTTER OPERATOR smoking history, tot al pack/day 0.5 Manuelah Bonareri PAPER CUTTER OPERATOR cigarette use yes Verah Bonareri PAPER CUTTER OPERATOR drug use no Verah Bonareri PAPER CUTTER OPERATOR alcohol use no Manuelah Bonareri PAPER CUTTER OPERATOR passive cigarette sm gayla exposure no Jeremiah Bonareri PAPER CUTTER OPERATOR smoking/tobacco cess ation, patient education and counseling contraindicated Jeremiah Bonareri PAPER CUTTER OPERATOR chewing tobacco use Never Manuelmagda moreira PAPER CUTTER OPERATOR smoking status Current every day smoker V pollytylor Dicksonreri PAPER CUTTER OPERATOR Underweight yes Raghav Blue drug use no Raghav Blue alcohol use no Raghav Blue passive cigarette sm gayla exposure no Raghav Godinez MD smoking/tobacco cess ation, patient education and counseling contraindicated Raghav Godinez MD chewing tobacco use Never Raghav middleton MD smoking status Current every day smoker R kelly Godinez MD Underweight yes Raghav Blue number of grandchildren Raghav Jordanolena Schroeder PAPER CUTTER OPERATOR Underweight no Raghav Blue social history E&M Marital Statu s: Single Zane monteirodren: 0 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 Raghav Godinez MD social history revie wed E&M reviewed - no changes required Raghav Godinez MD caffeine use, averag e drinks per day 1 /d Anna Marie Valderrama seatbelt usage 75 % Anna Marie Valderrama passive cigarette sm gayla exposure no Anna Marie Valderrama smoking/tobacco cess ation, patient education and counseling contraindicated Anna Marie Valderrama chewing tobacco use Never Anna Marie Sahu jenny drug use no Anna Marie Valderrama alcohol use no Anna Mraie Valderrama smoking status Current every day smoker T elizabeth Valderrama Underweight yes Raghav Blue social history E&M Marital Statu s: Single Zane monteirodren: 0 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 P atient has been counseled to quit. 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 P atient has been counseled to quit. 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 P atient has been counseled to quit. 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 P atient has been counseled to quit. 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 P atient has been counseled to quit. 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 P atient has been counseled to quit. 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 P atient has been counseled to quit. 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 P atient has been counseled to quit. 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 P atient has been counseled to quit. Raghav Godinez MD social history revie wed E&M reviewed - no changes required Raghav Godinez MD alcohol use no [facility] smoking/tobacco cess ation, patient education and counseling yes [facility] passive cigarette sm gayla exposure yes [facility] smoking status Current every day smoker B stanislaw Decker Underweight yes Raghav Blue social history revie wed E&M reviewed - no changes required Raghav Godinez MD Underweight yes Raghav Blue social history E&M Marital Statu s: Single Zane godwin: 0 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 P atient has been counseled to quit. 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 P atient has been counseled to quit. 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 Raghav Godinez MD smoking status Current every day smoker Bruna mikel Jurado FUNCTIONAL STATUS Date Observation Value Provider HRA, CV Assess/Plan, Angina (inactive) Management Plan continue current therapy Jeremiah Noel NP HRA, CV Assess/Plan, Angina (inactive) Management Plan continue current therapy Raghav Godinez MD HRA, CV Assess/Plan, Angina (inactive) Management Plan continue current therapy Raghav Godinez MD HRA, CV Assess/Plan, Angina (inactive) Management Plan antianginal therapy Raghav Godinez MD HRA, CV Assess/Plan, Angina (inactive) Management Plan continue current therapy Raghav Godinez MD HRA, CV Assess/Plan, Angina (inactive) Management Plan continue current therapy Raghav Godinez MD HRA, CV Assess/Plan, Angina (inactive) Management Plan continue current therapy Raghav Godinez MD HRA, CV Assess/Plan, Angina (inactive) Management Plan continue current therapy Raghav Godinez MD HRA, CV Assess/Plan, Angina (inactive) Management Plan continue current therapy Raghav Godinez MD HRA, CV Assess/Plan, Angina (inactive) Management Plan continue current therapy Raghav Godinez MD HRA, CV Assess/Plan, Angina (inactive) Management Plan continue current therapy Raghav Godinez MD HRA, CV Assess/Plan, Angina (inactive) Management Plan continue current therapy Raghav Godinez MD HRA, CV Assess/Plan, Angina (inactive) Management Plan continue current therapy Raghav Godinez MD FAMILY HISTORY Family Member Condition Mother MO female <65 Mother Family History of Co ngestive Heart Failure: Mother Family History of Hy pertension: Mother Family History of Di abetes: INSURANCE PROVIDERS Payer name Policy type / Coverage type [facility] ID [employer] OPEN ACCESS Other [id number] 1 ADVANCE DIRECTIVES Name Date DISCUSSED - NO DECISION MADE TREATMENT PLAN Date Name Performer [id number],C,Stable with n o angina Komal Nalluri PAPER CUTTER OPERATOR [id number],C, H er updated medication list for this problem includes: Ezetimibe 10 Mg Tablet (Ezetimibe) ..... Take 1 tablet by mouth once a day Komal Nalluri PAPER CUTTER OPERATOR [id number],C,Encouraged sm oking cessation Komal Nalluri PAPER CUTTER OPERATOR [id number],C, Komal Nalluri PAPER CUTTER OPERATOR [id number],C, Komal Nalluri PAPER CUTTER OPERATOR [id number],C, B P today: 162/100 P rior BP: 116/71 (09/17/2022) BP controlled at home per patient Komal Nalluri PAPER CUTTER OPERATOR [id number],C,stable from r ecent labs Komal Nalluri PAPER CUTTER OPERATOR [id number],C,Denies chest pain Komal Nalluri PAPER CUTTER OPERATOR [id number],C, Komal Lanzari PAPER CUTTER OPERATOR [id number],S, Raghav Ramada n [id number],S, Raghav Ramada n [place] [id number],S, Raghav Ramada n [id number],S, Raghav Ramada n [id number],S, Raghav Ramada n [place] [id number],B, Raghav Ramada n [place] [id number],S, Raghav Ramada n [place] [id number],S, Raghav Ramada n [place] [id number],S, Raghav Ramada n [place] [id number],S, Raghav Ramada n FL [id number],S, Raghav Ramada n [place] [id number],B, Raghav Ramada n [place] [id number],S, Raghav Ramada n [place] [id number],B, Raghav Ramada n [place] [id number],S, Raghav Ramada n FL [id number],S, Raghav Ramada n [place] [id number],C,C T negative for masses or arterial disease. W ill stop atorvastatin as it may be causing anorexia Raghav Godinez MD [id number],B, Rahgav Ramada n [id number],C,Has claudicat ion again. Check ABIs. Raghav Godinez MD [id number],B, Raghav Ramada n [id number],S, Raghav Ramada n [id number],W,C T angio abdomen for mesenteric ischemia. Raghav Godinez MD [id number],S, Raghav washington MD [id number],S, Raghav washington MD [id number],B,S/P bilateral iliac stents Raghav Godinez MD [id number],B, Raghav washington MD [id number],N,T elesentry for 2 weeks. Asymptomatic with junctional escape rhythm at 60. Raghav Godinez MD [id number],S, Raghav washington MD [id number],S, Raghav washington MD [id number],S, Raghav washington MD [id number],S, Raghav washington MD [id number],S, aRghav washington MD Cardiology:Resolved. Raghav jacobs MD Cardiology:D/C atorv astatin, side effects. 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 Now with anginal type pain. Needs PET stress, cannot walk treadmill due to PAD. Raghav Godinez MD Cardiology: A cceptable risk for upcoming surgery Jeremiah Noel NP Cardiology: H er updated medication list for this problem includes: Plavix 75 Mg Tablet (Clopidogrel) ..... 1 tablet once a day Jeremiah Noel NP Cardiology: E ncouraged smoking cessation Jeremiah Noel NP Cardiology: S table with no angina Jeremiah Noel NP Cardiology: Her updated medication list for this problem includes: Atorvastatin 40 Mg Tablet (Atorvastatin) ..... Take 1 tablet by mouth once a day Manuelmagda Bert PAPER CUTTER OPERATOR Cardiology: B P today: 124/80 P rior BP: 98/78 (09/23/2023) Jeremiah Dicksonbubba PAPER CUTTER OPERATOR Cardiology Raghav Godinez MD Cardiology Raghav Godinez MD Cardiology Raghav Godinez MD Cardiology Rgahav Godinez MD Cardiology:By low dose CT. Reche ck CT in 3 months. Raghav Godinez MD Cardiology:Stable with no angina Komal Nalluri PAPER CUTTER OPERATOR Cardiology: H er updated medication list for this problem includes: Ezetimibe 10 Mg Tablet (Ezetimibe) ..... Take 1 tablet by mouth once a day Komal Nalluri PAPER CUTTER OPERATOR Cardiology:Encouraged smoking ce ssation Komal Nalluri PAPER CUTTER OPERATOR Cardiology Komal Nalluri PAPER CUTTER OPERATOR Cardiology Komal Nalluri PAPER CUTTER OPERATOR Cardiology: B P today: 162/100 P rior BP: 116/71 (09/17/2022) BP controlled at home per patient Komal Nalluri PAPER CUTTER OPERATOR Cardiology:stable from recent la bs Komal Nalluri PAPER CUTTER OPERATOR Cardiology:Denies chest pain Nee rutledge Nalluri PAPER CUTTER OPERATOR Cardiology Komal Nalluri PAPER CUTTER OPERATOR Cardiology Raghav Godinez MD Cardiology Raghav Godinez MD Cardiology Raghav Godinez MD Cardiology Raghav Godinez MD Cardiology Raghav Godinez MD Cardiology Raghav Godinez MD Cardiology Raghav Godinez MD Cardiology Raghav Godinez MD Cardiology Raghav Godinez MD Cardiology Raghav Godinez MD Cardiology Raghav Godinez MD Cardiology Ragahv Godinez MD Cardiology Raghav Godinez MD Cardiology Raghav Godinez MD Cardiology Raghav Godinez MD Cardiology Raghav Godinez MD Cardiology:CT negati ve for masses or arterial disease. W ill stop atorvastatin as it may be causing anorexia Raghav Godinez MD Cardiology Raghav Godinez MD Cardiology:Has claudication agai n. Check ABIs. Raghav Godinez MD Cardiology Raghav Godinez MD Cardiology Raghav Godinez MD Cardiology:CT angio abdomen for mesenteric ischemia. Raghav Godinez MD Cardiology Raghav Godinez MD Cardiology Raghav Godinez MD Cardiology:S/P bilateral iliac s tents Raghav Godinez MD Cardiology Raghav Godinez MD Cardiology:Telesentr y for 2 weeks. Asymptomatic with junctional escape rhythm at 59. Raghav Godinez MD Cardiology Raghav Godinez MD Cardiology Raghav Godinez MD Cardiology Raghav Godinez MD Cardiology Raghav Godinez MD Cardiology Raghav Godinez MD Cardiology Raghav Godinez MD Cardiology Raghav Godinez MD Cardiology Raghav Godinez MD Cardiology Raghav Godinez MD Cardiology Raghav Godinez MD Cardiology Raghav Godinez MD Cardiology Raghav Godinez MD Cardiology Raghav Godinez MD Cardiology Raghav Godinez MD Cardiology Raghav Godinez MD Cardiology Raghav Godinez MD Cardiology:Carotid d uplex shows LICA 50-69%. Still smoking. Recheck in 6 months. Raghav Godinez MD Cardiology Raghav Godinez MD Cardiology Raghav Godinez MD Cardiology Raghav Godinez MD Cardiology Raghav Godinez MD Cardiology:Needs carotid duplex and SHARON Raghav Godinez MD Cardiology Raghav Godinez MD Cardiology Raghav Godinez MD Cardiology Raghav Godinez MD Cardiology Raghav Godinez MD Cardiology Raghav Godinez MD Cardiology Raghav Godinez MD Cardiology Ragahv Godinez MD Cardiology Raghav Godinez MD Cardiology Raghav Godinez MD Cardiology Raghav Godinez MD Cardiology Raghav Godinez MD Cardiology Raghav Godinez MD Cardiology Raghav Godinez MD Cardiology:Sounds like variant m igraine. Raghav Godinez MD Cardiology Raghav Godinez MD Cardiology Raghav Godinez MD Cardiology Raghav Godinez MD Cardiology Raghav Godinez MD Cardiology Raghav Godinez MD Cardiology Raghav Godinez MD Cardiology:Needs GI eval. W ill review studies done at [facility]. Raghav Godinez MD Cardiology Raghav Godinez MD Cardiology Raghav Godinez MD Cardiology Raghav Godinez MD Cardiology Raghav Godinez MD Cardiology Raghav Godinez MD Cardiology Raghav Godinez MD Cardiology Raghav Godinez MD Cardiology Raghav Godinez MD Cardiology Raghav Godinez MD Cardiology Raghav Godinez MD Cardiology Raghav Godinez MD Cardiology Raghav Godinez MD Cardiology Raghav Godinez MD Cardiology Raghav Godinez MD Cardiology Raghav Godinez MD Cardiology Raghav Godinez MD Cardiology Raghav Godinez MD Cardiology Raghav Godinez MD Cardiology Raghav Godinez MD Cardiology Raghav Godinez MD Cardiology Raghav Godinez MD Cardiology Raghav Godinez MD Cardiology Raghav Godinez MD Cardiology Raghav Godinez MD Date Name Complete Echo myocardial blood jovany w (PET) Stress Cardiac PET-C T CBC (INCLUDES DIFF/P LT) COMPREHENSIVE METABO LIC PANEL, W/EGFR LIPID PANEL Lipoprotein (a) CRP, high sensitivit y LIPID PANEL LIPID PANEL CRP, high sensitivit y Lipoprotein (a) Creatinine, Serum Arterial Duplex Bi-L ower EX CT Angio, abdomen an d pelvis Monitor - Telemetry (Mobile Cardiac) Carotid Duplex Bilat eral Complete Echo Stress Exercise Card iolite Carotid Duplex Bilat eral Carotid Duplex Bilat eral Arterial Duplex Bi-L ower EX Carotid Duplex Bilat eral Complete Echo Stress Exercise Card iolite URINALYSIS, REFLEX CT Head without cont rast STR - Nuclear Complete Echo PROTHROMBIN TIME WIT H INR LIPID PANEL BASIC METABOLIC PANE L W/EGFR VITAMIN B12 RETICULOCYTE COUNT IRON AND TOTAL IRON BINDING CAPACITY FOLATE, SERUM FERRITIN CBC (INCLUDES DIFF/P LT) AIF - CNE Complete Echo HISTORY OF PROCEDURES Procedure Date Procedure Name Provider Procedure Notes S tatus EKG Raghav Godinez MD complete d EKG Raghav Godinez MD complete d EKG Raghav Godinez MD complete d EKG Raghav Godinez MD complete d EKG Raghav Godinez MD complete d Stress EKG Levar Rush MD complete d Regadenoson, 4 units Scott Downey MD completed Cardiolite, 2 units Scott Downey MD completed SPECT Images Scott Downey MD compl eted EKG Raghav Godinez MD complete d EKG Raghav Godinez MD complete d SNOMED-CT: [id number] Current Medications Documented Raghav Godinez MD completed Stress EKG Scott Downey MD complet ed Cardiolite, 2 units Scott Downey MD completed SPECT Images Scott Downey MD compl eted Callie 1mkrys Godinez MD complete d IV Push januarybsequjulius Godinez MD completed Injectafer 750mg Raghav Godinez MD co mpleted Therapeutic IV Infus ion up to 1 hour Raghav Godinez MD completed Callie 1mkrys Godinez MD complete d IV Push jennifer Godinez MD completed Injectafer 750mg Raghav Godinez MD co mpleted Therapeutic IV Infus ion up to 1 hour Raghav Godinez MD completed SNOMED-CT: [id number] Current Medications Documented Raghav Godinez MD completed EKG Raghav Godinez MD complete d SNOMED-CT: [id number] Current Medications Documented Raghav Godinez MD completed
--- NOTE | 2024-11-09 11:36 | ED.EAR ---
HPI - Ear Problem General Chief complaint: Ear Stated complaint: lt ear discomfort Source: patient Mode of arrival: ambulatory Limitations: no limitations History of Present Illness HPI Narrative: Patient is a 59 year old female who presents to the clinic with complaints of left ear pain. She states that she has had this pain for two years, but in the last two weeks she has not be able to hear out of her left ear. She states that she has been trying to get into a doctor, but has not been able to. Related Data Home Medications ?Medication ?Instructions ?Recorded ?Confirmed ?Last Taken ?Type acyclovir 200 mg capsule 200 mg PO QID 05/06/21 10/08/23 Unknown History alprazolam 0.5 mg tablet 0.5 mg PO QID PRN Anxiety 05/06/21 10/08/23 Unknown History atorvastatin 40 mg tablet 40 mg PO DAILY 05/06/21 10/08/23 Unknown History citalopram 40 mg tablet 40 mg PO DAILY 05/06/21 10/08/23 Unknown History clopidogrel 75 mg tablet 75 mg PO DAILY 05/06/21 10/08/23 Unknown History gabapentin 100 mg capsule 300 mg PO HS 05/06/21 10/08/23 Unknown History hydroxychloroquine 200 mg tablet 200 mg PO BID 05/06/21 10/08/23 Unknown History oxycodone-acetaminophen 5 mg-325 5 tablet PO Q6H PRN Pain (Scale 05/06/21 10/08/23 Unknown History mg tablet Score 4-6) ergocalciferol (vitamin D2) 1,250 1,250 mcg PO WEEKLY 10/08/23 10/08/23 Unknown History mcg (50,000 unit) capsule umeclidinium 62.5 mcg-vilanterol 2 inh inhalation DAILY 10/08/23 10/08/23 Unknown History 25 mcg/actuation powdr for inhalation (Anoro Ellipta) Allergies Allergy/AdvReac Type Severity Reaction Status Date / Time Sulfa (Sulfonamide Allergy Unknown Hives Verified 10/08/23 12:00 Antibiotics) Review of Systems Review of Systems: CONSTITUTIONAL: Denies malaise, chills, ?or fever. EYES: Denies visual changes, redness, or discharge. ENT: Denies rhinorrhea, congestion, sinus pain, and sore throat. ?Reports L ear pain and hearing loss. CARDIOVASCULAR: Denies chest pain, palpitations, or edema. RESPIRATORY: Denies cough or dyspnea. GASTROINTESTINAL: Denies abdominal pain, nausea, vomiting, diarrhea SKIN: Denies rash or itching. MUSCULOSKELETAL: Denies myalgia. NEUROLOGIC: Denies headache. All systems reviewed & are unremarkable except as noted in HPI and below PMFSH Social History Social History Smoking status: Current every day smoker Alcohol intake: current Comments At time of signature, I have reviewed and agree with nursing past medical, surgical, social and family history unless otherwise noted. Please see nursing chart for further information. There is no relevant family history pertinent to the presenting complaint. Exam Narrative: GENERAL: Well-appearing, well-nourished, and in no acute distress. HEAD: Normocephalic EYES: PERRLA, conjunctivae clear ENT: Nares clear. Mucous membranes moist. Right TM with normal light reflex. Cerumen impaction noted to left ear. Left ear with no drainage or no tragal tenderness. Oropharynx not erythematous without lesions. ?no drooling, no hoarseness, no trismus, uvula midline. NECK: Supple. No lymphadenopathy CHEST: Clear to auscultation, breath sounds equal. No wheezing, rhonchi, rales, or stridor. No respiratory distress, speaks in full sentences. HEART: Regular rate and rhythm. No murmur heard. SKIN: Warm, dry, no rash. NEURO: Alert and oriented x3. PSYCH: Normal mood and affect. Course Course Level of Care: Express Care Visit Vital Signs Vital signs: Vital Signs Temperature 97.8 F 11/09/24 11:34 Pulse Rate 87 11/09/24 11:34 Respiratory Rate 18 11/09/24 11:34 Blood Pressure 152/81 H 11/09/24 11:34 Pulse Oximetry 100 11/09/24 11:34 Oxygen Delivery Room Air 11/09/24 11:34 Temperature 97.8 F 11/09/24 11:34 Pulse Rate 87 11/09/24 11:34 Respiratory Rate 18 11/09/24 11:34 Blood Pressure 152/81 H 11/09/24 11:34 Pulse Oximetry 100 11/09/24 11:34 Oxygen Delivery Room Air 11/09/24 11:34 Reviewed Procedures Ear Wax Removal Left Ear: Ear Wax Removal Date: 11/09/24 Cerumenolytic Used: other (water and hydrogen peroxide) Results: Re-examined: some cerumen remains TM Examination: TM(s) intact, normal appearance Patient Tolerated Procedure: well Complications: no problems Technique: ear canal irrigated and ear canal curetted Medical Decision Making MDM Narrative Medical decision making narrative: Discussed physical exam findings. Cerumen impaction removed. Advised supportive measures and signs/symptoms to go to the ER. Pt is appropriate for outpatient treatment and follow up. Differential Diagnosis Differential Diagnosis: cerumen impaction, otitis media, otitis externa. Vital Signs Vital Signs: Vital Signs Temperature 97.8 F 11/09/24 11:34 Pulse Rate 87 11/09/24 11:34 Respiratory Rate 18 11/09/24 11:34 Blood Pressure 152/81 H 11/09/24 11:34 Pulse Oximetry 100 11/09/24 11:34 Oxygen Delivery Room Air 11/09/24 11:34 Temperature 97.8 F 11/09/24 11:34 Pulse Rate 87 11/09/24 11:34 Respiratory Rate 18 11/09/24 11:34 Blood Pressure 152/81 H 11/09/24 11:34 Pulse Oximetry 100 11/09/24 11:34 Oxygen Delivery Room Air 11/09/24 11:34 Critical Care Time Critical Care Time Critical Care Time: No Discharge Plan Discharge Clinical Impression: Cerumen impaction Qualifiers: Laterality: left Qualified Code(s): H61.22 - Impacted cerumen, left ear Patient Disposition: Home Condition: Stable Instructions: How to Use Ear Drops (ED) Additional Instructions: Please use earwax softening agent such as [id number] Debrox or a mixture 1 part hydrogen peroxide in 1 part warm water several times weekly to keep your earwax soft and prevent further infection. You may use Tylenol or ibuprofen for pain. Follow up with your primary care provider as needed in 1 week. Go to the ER for worsening symptoms or concerns Patient Language: Telugu Prescriptions: No Action alprazolam 0.5 mg tablet 0.5 mg PO QID PRN (Reason: Anxiety) clopidogrel 75 mg tablet 75 mg PO DAILY atorvastatin 40 mg tablet 40 mg PO DAILY citalopram 40 mg tablet 40 mg PO DAILY gabapentin 100 mg capsule 300 mg PO HS hydroxychloroquine 200 mg tablet 200 mg PO BID acyclovir 200 mg capsule 200 mg PO QID oxycodone-acetaminophen 5-325 mg tablet 5 tablet PO Q6H PRN (Reason: Pain (Scale Score 4-6)) ergocalciferol (vitamin D2) 1,250 mcg (50,000 unit) capsule 1,250 mcg PO WEEKLY Anoro Ellipta 62.5-25 mcg/actuation blister with device 2 inh INHALATION DAILY Follow-up/Referrals: Steve,Luke Isaac MD [Primary Care Provider] - Time of Disposition: 12:12
== END 2024-11-09 12:18 | disposition home or self-care (01) ==
PROVIDERS: PCP Internal Medicine
DX: H61.22 Impacted cerumen, left ear (principal); F17.200 Nicotine dependence, unspecified, uncomplicated
CPT/HCPCS: 69210; 99212; G0463